=== PATIENT | male | born 1950 | race Caucasian/White ===

== ENCOUNTER 2023-04-10 10:46 | Inpatient (IN) | payer MEDICARE, SELFPAY ==
[2023-04-10] VITALS (39 sets, daily range): BP systolic 79–136; BP diastolic 46–71; PULSE 44–160; RESP 17–35; TEMP 36.6–36.7; O2SAT 92–100; BMI 20.9; BMI 21.5; BMI 20.5
[2023-04-10] MEDS: dilTIAZem HCL 100 MG in 0.9 % SODIUM CHLORIDE 100 ML 10 MG IV (10:59)
[2023-04-10] MEDS: LACTATED RINGERS 1000ML 1,000 ML 999 ML IV (11:01)
--- NOTE | 2023-04-10 11:11 | XR_ITS ---
FINAL REPORT CLINICAL HISTORY: cp FINDINGS: SINGLE-VIEW CHEST There is cardiomegaly. The mediastinum is normal. There is right base opacity, may represent localized pneumonia but mass is not excluded. There is no pneumothorax. IMPRESSION: Right base opacity as above. Recommend follow-up radiographs or chest CT. Reviewed, Interpreted and Dictated by Arsenio Ramirez III, MD Transcribed by Tootie Rosas Authenticated and . [facility]
[2023-04-10 11:19] LABS: Basophils % 0.1 % (0.1-2.0); Eosinophils # 0.1 K/mm3 (0.0-0.4); Eosinophils % 0.4 % (0.1-12.0); Hematocrit 41.9 % (42.0-52.0); Hemoglobin 13.5 g/dL (14.1-18.0); Lymphocytes % 7.9 % (10-50); Mean Corpuscular HGB Conc 32.2 g/dL (31.8-35.4); Mean Corpuscular Hemoglobin 30.6 pg (27.0-31.2); Mean Corpuscular Volume 94.8 fl (80-94); Mean Platelet Volume 8.2 fl (7.4-10.4); Monocytes # 0.7 K/mm3 (0.1-1.0); Monocytes % 5.1 % (1.7-9.3); Neutrophils # 11.3 K/mm3 (1.8-7.8); Neutrophils % 86.6 % (37.0-80.0); Platelet Count 627 K/mm3 (142-424); Red Blood Count 4.42 M/mm3 (4.60-6.20); White Blood Count 13.1 K/mm3 (4.8-10.8)
[2023-04-10 11:21] LABS: Chloride 102 mmol/L (98-107); Potassium 3.9 mmoL/L (3.5-5.1); Sodium 135 mmol/L (136-145)
[2023-04-10 11:23] LABS: Blood Urea Nitrogen 18 mg/dl (9-20); Creatinine Clearance Estimated 48 mL/min (50-200); Estimated Glomerular Filt Rate 110 ml/min (>60); GFR (African American) 133 ML/MIN (>60)
[2023-04-10 11:24] LABS: Alanine Aminotransferase 48 U/L (12-78); Albumin Level 3.3 g/dl (3.5-5.0); Albumin/Globulin Ratio 0.9 (1.1-1.8); Alkaline Phosphatase 401 U/L (38-126); Anion Gap 13.9 mEq/L (5-15); Aspartate Amino Transferase 68 U/L (17-59); Bilirubin,Total 0.6 mg/dl (0.2-1.3); Carbon Dioxide 23 mmol/L (22.0-30.0); Globulin 3.5 g/dL (1.3-3.2); Total Protein,Serum 6.8 g/dl (6.3-8.2)
[2023-04-10 11:25] LABS: Calcium 8.7 mg/dl (8.4-10.2); Glucose 101 mg/dl (74-100)
[2023-04-10 11:26] LABS: MANUAL DIFFERENTIAL MANUAL DIFFERENTIAL (MANUAL DIFF)
--- NOTE | 2023-04-10 11:31 | ECG_ITS ---
APPROVED REPORT Exam: Resting ECG HR:158 bpm ECG Measurements Heart Rate 158 AXES QRSd 148 QRS 165 QT 300 T -34 QTc 388 Conclusion ATRIAL FLUTTER/TACHYCARDIA WITH RAPID VENTRICULAR RESPONSE RIGHT BUNDLE BRANCH BLOCK [120+ ms QRS DURATION, UPRIGHT V1, 40+ ms S IN I/aVL/V4/V5/V6] LEFT POSTERIOR FASCICULAR BLOCK [QRS AXIS > 109, INFERIOR Q] CRITICAL TEST RESULT UNCONFIRMED REPORT Electronically signed by : Dick Radford MD 04/11/2023 20:11:49
--- NOTE | 2023-04-10 11:34 | ED_ITS ---
Discharge Plan Disposition Patient Disposition: Admitted Chief Complaint: Arrhythmia/Palpitations Prescriptions Prescriptions: No Action digoxin 125 mcg (0.125 mg) tablet 0.125 mg PO DAILY Referrals Follow up/Referrals: Provider,Referral, MD [Referring] - See instructions Clinical Impressions Clinical Impression: Atrial flutter, Atrial tachycardia, CHF exacerbation, Lung cancer Discharge ED Provider: Norberto Voss General Adult HPI General Chief complaint: Arrhythmia/Palpitations Stated complaint: Chest Pain Time Seen by Provider: 04/10/23 10:56 Mode of Arrival: Wheelchair Source of Information: Patient Limitations: No Limitations Description of Symptoms (Recalled from ER Triage Doc. by RN): pt presents to ED with c/o tachycardia and a fib. pt report he was seen on saturday at [facility] ER and diagnosed with a fib. pt reports symptoms ongoing since then. History of Present Illness HPI narrative: 73-year-old male history of COPD not currently on home oxygen presenting with shortness of breath palpitations. This has been going on for couple of days. Was seen in outside ED, diagnosed with A-fib, and then sent home because, allegedly, he was unable to get admitted or transferred to the area. Patient has had palpitations at that time. Followed up with cardiology today where he was having heart rate 1 50-1 60 and appeared to be regular narrow complex. Patient was then sent to the ER for further evaluation. Patient states that he is feeling short of breath like he cannot catch his breath, but no cough, diaphoresis, nausea, vomiting, or any concerns. No lower extremity edema. Never had anything like this in the past. He states that he began having the palpitations right after he was prescribed albuterol for shortness of breath by PCP. Related Data Home Medications Medication Instructions Recorded Confirmed digoxin 125 mcg (0.125 mg) tablet 0.125 mg PO DAILY 04/10/23 04/10/23 Allergies Allergy/AdvReac Type Severity Reaction Status Date / Time No Known Allergies Allergy Verified 04/10/23 09:58 [facility] Disclaimer: The information contained in this section may have been updated after the patient was seen, as this information can be updated by other users. Surgical History (Updated 04/10/23 @ 09:58 by Sarah Jj) H/O hernia repair Social History (Updated 04/10/23 @ 09:57 by Sarah Jj) Smoking Status: Current every day smoker tobacco type: cigarettes packs per day: 1 alcohol intake: never current occupational status: retired Travel in the last 8 weeks: Inside the [place] ROS Obtained: Yes All systems reviewed & no additional complaints except as documented Physical Exam General General appearance: alert and in no apparent distress Head Head exam: atraumatic and normocephalic Eye Eye exam: Present normal appearance, PERRL and EOMI ENT ENT exam: Present mucous membranes moist Neck Neck exam: Present normal inspection, full ROM and trachea midline Chest Chest inspection: Present normal inspection and symmetric chest wall rise Respiratory Respiratory exam: Absent respiratory distress, wheezes, stridor, accessory muscle use or prolonged expiratory phase Cardiovascular Cardiovascular exam: Present normal rhythm and tachycardia Abdominal Exam Abdominal exam: Present soft; Absent distention, tenderness, guarding, rebound or rigidity Extremities Exam Extremities exam: Absent edema Neurological Exam Neurological exam: Present alert, oriented X3, CN II-XII intact and normal gait; Absent motor sensory deficit Skin Skin exam: Present warm and dry; Absent diaphoresis or erythema Medical Decision Making Medical Records Medical records reviewed: Yes I reviewed the patient's medical records. Junior Inquiry Pt receiving controlled substance: No Junior was queried for this patient: No Vital Signs: 04/10/23 10:47 04/10/23 10:56 04/10/23 11:00 Temperature 98.0 F Temperature Source Oral Pulse Rate 160 H 158 H Pulse Rate [Left Radial] 160 H Respiratory Rate 17 25 H 29 H Blood Pressure 93/69 L 95/70 L Blood Pressure [Right Arm] 92/71 L Blood Pressure Mean Blood Pressure Mean [Right Arm] 78 02 Sat by Pulse Oximetry 96 98 92 L Oxygen Delivery Method Room Air 04/10/23 11:15 04/10/23 11:17 04/10/23 11:32 Temperature Temperature Source Pulse Rate 159 H 158 H 158 H Pulse Rate [Left Radial] Respiratory Rate 24 31 H 32 H Blood Pressure 87/66 L 92/71 L 88/58 L Blood Pressure [Right Arm] Blood Pressure Mean Blood Pressure Mean [Right Arm] 02 Sat by Pulse Oximetry 97 95 98 Oxygen Delivery Method 04/10/23 11:42 04/10/23 11:46 04/10/23 11:57 Temperature Temperature Source Pulse Rate 62 Pulse Rate [Left Radial] Respiratory Rate 28 H 33 H 28 H Blood Pressure 89/67 L 93/54 L 81/54 L Blood Pressure [Right Arm] Blood Pressure Mean Blood Pressure Mean [Right Arm] 02 Sat by Pulse Oximetry 97 Oxygen Delivery Method 04/10/23 12:00 04/10/23 12:15 04/10/23 11:50 Temperature Temperature Source Pulse Rate 80 158 H 89 Pulse Rate [Left Radial] Respiratory Rate 24 30 H Blood Pressure 90/57 L 89/58 L Blood Pressure [Right Arm] Blood Pressure Mean Blood Pressure Mean [Right Arm] 02 Sat by Pulse Oximetry 99 97 Oxygen Delivery Method 04/10/23 11:50 04/10/23 12:22 04/10/23 12:30 Temperature Temperature Source Pulse Rate 156 H 82 67 Pulse Rate [Left Radial] Respiratory Rate 30 H 29 H Blood Pressure 89/63 L 91/53 L Blood Pressure [Right Arm] Blood Pressure Mean Blood Pressure Mean [Right Arm] 02 Sat by Pulse Oximetry 95 96 Oxygen Delivery Method 04/10/23 13:01 04/10/23 13:15 04/10/23 13:30 Temperature Temperature Source Pulse Rate 157 H 75 Pulse Rate [Left Radial] Respiratory Rate 29 H 24 27 H Blood Pressure 90/63 L 86/53 L 88/60 L Blood Pressure [Right Arm] Blood Pressure Mean Blood Pressure Mean [Right Arm] 02 Sat by Pulse Oximetry 97 96 97 Oxygen Delivery Method 04/10/23 13:45 04/10/23 14:00 04/10/23 14:15 Temperature Temperature Source Pulse Rate 60 56 L 56 L Pulse Rate [Left Radial] Respiratory Rate 33 H 35 H 27 H Blood Pressure 87/54 L 92/58 L 87/51 L Blood Pressure [Right Arm] Blood Pressure Mean 69 60 Blood Pressure Mean [Right Arm] 02 Sat by Pulse Oximetry 96 96 96 Oxygen Delivery Method 04/10/23 14:30 Temperature Temperature Source Pulse Rate 65 Pulse Rate [Left Radial] Respiratory Rate 27 H Blood Pressure 84/56 L Blood Pressure [Right Arm] Blood Pressure Mean 62 Blood Pressure Mean [Right Arm] 02 Sat by Pulse Oximetry 96 Oxygen Delivery Method Lab Data Lab Results 04/10/23 10:50: WBC 13.1 H, RBC 4.42 L, Hgb 13.5 L, Hct 41.9 L, MCV 94.8 H, MCH 30.6, MCHC 32.2, RDW 14.0, Plt Count 627 H, MPV 8.2, Neut % (Auto) 86.6 H, Lymph % (Auto) 7.9 L, Liberty % (Auto) 5.1, Eos % (Auto) 0.4, Baso % (Auto) 0.1, Neut # (Auto) 11.3 H, Lymph # (Auto) 1.0, Liberty # (Auto) 0.7, Eos # (Auto) 0.1, Baso # (Auto) 0.0, Total Counted 100, Neutrophils % (Manual) 78 H, Band Neutrophils % 5.0, Lymphocytes % (Manual) 3 L, Monocytes % (Manual) 14 H, Platelet Estimate Marked increase, RBC Morphology Normal, Sodium 135 L, Potassium 3.9, Chloride 102, Carbon Dioxide 23, Anion Gap 13.9, BUN 18, Creatinine 0.70, Estimated Creat Clear 48, Estimated GFR 110, Est GFR ( Amer) 133, Glucose 101 H, Calcium 8.7, Total Bilirubin 0.6, AST 68 H, ALT 48, Alkaline Phosphatase 401 H, Troponin I 0.04 H, NT-Pro-B Natriuret Pep 5980 H, Total Protein 6.8, Albumin 3.3 L, Globulin 3.5 H, Albumin/Globulin Ratio 0.9 L 04/10/23 10:50 04/10/23 10:50 Orders (Tests/Meds): ED MEDICATIONS Generic Name Dose Route Start Last Admin Trade Name Freq PRN Reason Stop Dose Admin Diltiazem HCl 180 mg 04/10/23 12:45 04/10/23 13:04 Diltiazem Hcl 180mg Cap.Er.24h PO 05/10/23 12:44 180 mg DAILY MANAS Administration Enoxaparin Sodium 55 mg 04/10/23 14:45 Enoxaparin 60mg/0.6ml Syringe SQ 05/10/23 14:44 Q12H MANAS Diltiazem HCl 100 mg/ Sodium 100 mls @ 10 mls/hr 04/10/23 10:58 04/10/23 12:30 Chloride IV 05/10/23 10:57 15 mg/hr .Q10H MANAS 15 mls/hr Titration Protocol 10 MG/HR Discontinued Medications Generic Name Dose Route Start Last Admin Trade Name Freq PRN Reason Stop Dose Admin Albuterol/Ipratropium 6 ml 04/10/23 11:33 04/10/23 12:03 Ipratropium/Albuterol 3 Ml Neb IH 04/10/23 11:34 6 ml ONCE ONE Administration Diltiazem HCl 15 mg 04/10/23 11:32 04/10/23 12:02 Diltiazem 25mg/5ml Vial IV 04/10/23 11:33 10 mg ONCE ONE Administration Diltiazem HCl 10 mg 04/10/23 12:30 04/10/23 12:27 Diltiazem 125mg/25ml Vial IV 04/10/23 12:31 10 mg ONCE ONE Administration Diltiazem HCl 10 mg 04/10/23 12:31 04/10/23 13:03 Diltiazem 25mg/5ml Vial IV 04/10/23 12:32 10 mg ONCE ONE Administration Furosemide 40 mg 04/10/23 14:32 Furosemide 40mg/4ml Vial IV 04/10/23 14:33 ONCE ONE Lactated Ringer's 1,000 mls @ 999 mls/hr 04/10/23 10:57 04/10/23 11:01 Lactated Ringer's 1000 Ml Bag IV 04/10/23 11:57 999 mls/hr .Q1H1M ONE Administration Magnesium Sulfate 2 gm in 50 mls @ 50 mls/hr 04/10/23 11:32 04/10/23 12:03 Magnesium Sulfate 2gm/50ml Premix IV 04/10/23 12:31 50 mls/hr ONCE ONE Administration Iopamidol 75 ml 04/10/23 12:54 04/10/23 12:55 Iopamidol-370 (76%);100ml Bottle IV 04/10/23 12:55 75 ml ONCE ONE Administration Methylprednisolone Sodium Succinate 125 mg 04/10/23 11:32 04/10/23 12:02 Methylprednisolone Sod Succ 125mg Vial IV 04/10/23 11:33 125 mg ONCE ONE Administration Sodium Chloride 50 ml 04/10/23 12:54 04/10/23 12:55 0.9 % Sodium Chloride 50 Ml Vial IV 04/10/23 12:55 50 ml ONCE ONE Administration Sodium Chloride 10 ml 04/10/23 12:54 04/10/23 12:55 Sodium Chloride 0.9% 10ml Syr (Rad Only) IV 04/10/23 12:55 10 ml ONCE ONE Administration ORDERS Category Date Time Status CT angio chest PE protocol Stat Cat Scan 04/10/23 12:16 Completed POCUS Point of Care (ER Only) Stat Exams 04/10/23 14:37 Ordered XR chest portable Stat Exams 04/10/23 11:11 Completed Brain Natriuretic Peptide Stat Lab 04/10/23 10:50 Completed Complete Blood Count Auto Diff Stat Lab 04/10/23 10:50 Completed Comprehensive Metabolic Panel Stat Lab 04/10/23 10:50 Completed Troponin I Q3H Lab 04/10/23 14:30 Received Troponin I Q3H Lab 04/10/23 17:15 Ordered Troponin I Stat Lab 04/10/23 10:50 Completed ECG initial Besson Routine Y 04/10/23 11:31 Completed ECG repeat same Besson Routine Y 04/10/23 13:06 Completed HEART Score History (anamnesis): Slightly suspicious ECG: Normal Age: >65 years Risk factors: 1-2 risk factors Troponin: 1-3x normal limit HEART Score: 4 Medical Decision Narrative: 73-year-old male history of COPD not currently on home oxygen presenting with shortness of breath palpitations. This has been going on for couple of days. Was seen in outside ED, diagnosed with A-fib, and then sent home because, allegedly, he was unable to get admitted or transferred to the area. Patient has had palpitations at that time. Followed up with cardiology today where he was having heart rate 1 50-1 60 and appeared to be regular narrow complex. Patient was then sent to the ER for further evaluation. Patient states that he is feeling short of breath like he cannot catch his breath, but no cough, diaphoresis, nausea, vomiting, or any concerns. No lower extremity edema. Never had anything like this in the past. He states that he began having the palpitations right after he was prescribed albuterol for shortness of breath by PCP. History was obtained via conversation with patient, family, cardiology. On arrival, patient hemodynamically stable, alert, oriented x4, appropriate, GCS 15, moving all extremities spontaneously, pupils equal and reactive to light. Full physical exam performed and significant for well-appearing male no acute distress. Lungs clear to auscultation bilaterally with quiet right lung base. No lower extremity edema. Patient tachycardic, but regular. Pulses equal and symmetric.. Differential includes ACS, NM, pneumothorax, PE, dissection, pneumothorax, aortic aneurysm, pneumonia, bronchitis, among others. Patient was given 10 mg diltiazem IV bolus, DuoNeb, prednisone, magnesium 2 g for symptomatic management and correction of underlying abnormalities. Workup independently interpreted and significant for Leukocytosis 13.1, nonactionable chemistry. Patient does have elevated troponin at 0.04 and BNP of 5900, likely secondary to heart strain versus COPD exacerbation. Chest x-ray with large right-sided lung mass, CT PE demonstrated no PE, but large lung mass with numerous metastases. Bedside ultrasound with grossly normal EF and wall motion. Small pericardial effusion. No evidence of right heart strain. See radiology read for full review of final results. Independent interpretation of EKG shows atrial tachycardia with right bundle branch block morphology. No evidence of epsilon wave. No evidence of delta wave. Different morphology P waves concerning for multifocal A. tach.. QRS 148 ms, QT 300 ms. Repeat EKG atrial flutter [address] or T wave changes concerning for acute ischemia. QRS wide with right bundle branch block morphology. Heart score 4. On reevaluation, patient remains intermittently tachycardic. Given numerous doses of diltiazem with intermittent return to slower heart rate. Diltiazem drip was started. Cardiology was contacted and case was discussed at length. Hospital medicine also contacted and case was discussed at length. Given patient presentation, workup, history, this most likely represents atrial flutter and rapid ventricular response. Also lung carcinoma. Because patient high risk for clinical decompensation, deemed appropriate for inpatient admission. Results were relayed to patient who voiced understanding and patient was agreeable to inpatient admission and management. Patient was admitted to the hospital for further definitive management. Procedures Limited Ultrasound Indication:: Limited cardiac ultrasound Indication: Palpitations Identified cardiac views: -Cardiac parasternal long axis -Cardiac parasternal short axis -Cardiac apical four-chamber Findings: -Cardiac activity grossly present -Gross wall motion normal, EF grossly normal -Pericardial effusion present -Right heart strain absent Impression: -Grossly healthy heart with no wall motion abnormalities. EF grossly normal. Patient does have small pericardial effusion Images were saved to permanent archive The study was technically adequate CPT: 30217 This study was performed by me, and I personally interpreted all images/videos. Based on my clinical judgement, these images were adequate and did not necessitate further imaging. Critical Care Critical Care Time Critical Care Time: Yes (cv) Attestation: On 04/10/23, the high probability of a clinically significant, sudden or life threatening deterioration of the following system(s) required my full and direct attention, intervention and personal management. The time I documented below is in addition to time spent performing reported procedures but includes the following listed in this critical care notation. Total Time Total Critical Care Time: 60
[2023-04-10 11:36] LABS: Troponin I 0.04 ng/ml (0.00-0.034)
[2023-04-10] MEDS: METHYLPREDNISOLONE SOD SUCC 125MG VIAL 125 MG IV (12:02)
[2023-04-10] MEDS: dilTIAZem 25MG/5ML VIAL 15 MG IV (12:02)
[2023-04-10] MEDS: MAGNESIUM SULFATE IN WATER 2 GM/50 ML PIGGYBACK IV (12:03)
[2023-04-10] MEDS: IPRATROPIUM/ALBUTEROL 3 ML NEB 6 ML IH (12:03)
--- NOTE | 2023-04-10 12:16 | CT_ITS ---
FINAL REPORT TECHNIQUE: Then section axial CT images of the chest were obtained with contrast. Three-D reformatted images were also obtained.This study was performed with techniques to keep radiation doses as low as reasonably achievable (ALARA). Individualized dose reduction techniques using automated exposure control or adjustment of mA and/or kV according to the patient's size were employed. CLINICAL HISTORY: tachycardia, soa, right lung mass COMPARISON: None FINDINGS: There is no evidence of pulmonary embolism. There is no evidence of thoracic aortic aneurysm or dissection. There is mediastinal and hilar adenopathy which is nonspecific, reactive or neoplastic. A small right pleural effusion is present as well as changes of emphysema. There are soft tissue opacities in the lung arce, most prominently in the right middle lobe and the superior segment of the right lower lobe. Some of this may represent inflammatory change, although a mass or masses are not excluded. There is a round 38 x 37 mm soft tissue opacity in the superior segment of the right lower lobe that could represent neoplasm; alternately the medial right middle lobe soft tissue opacity could be a mass. There are multiple hepatic masses, the largest of which is in the inferior right hepatic lobe and measures 6.7 cm in size. These likely represent widespread metastatic disease. There is also adenopathy in the upper abdomen, worrisome for metastatic disease. There are probable stones or sludge present in the gallbladder. IMPRESSION: No evidence of pulmonary embolism. Soft tissue opacities in the right middle lobe and the superior segment of the right lower lobe, while some may be an inflammatory a mass or masses cannot be excluded as described. Multiple hepatic masses, as well as upper abdominal adenopathy also worrisome for him widespread metastases. Reviewed, Interpreted and Dictated by Arsenio Ramirez III, MD Transcribed by Erin Thomas Authenticated and [facility]
[2023-04-10] MEDS: DILTIAZEM 125 MG/25 ML 10 MG IV (12:27)
--- NOTE | 2023-04-10 12:28 | PC.NURSE ---
after 2nd dose of diltiazem heart rate down to 86 cardiazem drip to 15mg
--- NOTE | 2023-04-10 12:37 | PC.NURSE ---
pt going up for CT
[2023-04-10] MEDS: SODIUM CHLORIDE 0.9% 10ML SYR (RAD ONLY) 10 ML IV (12:55)
[2023-04-10] MEDS: IOPAMIDOL-370 (76%);100ML BOTTLE 75 ML IV (12:55)
[2023-04-10] MEDS: 0.9 % SODIUM CHLORIDE 50 ML VIAL IV (12:55)
[2023-04-10 12:57] LABS: NT Pro Brain Natriuretic Pep. 5980 pg/mL (0-450)
[2023-04-10] MEDS: dilTIAZem 25MG/5ML VIAL 10 MG IV (13:03)
[2023-04-10] MEDS: dilTIAZem HCL 180MG CAP.ER.24H 180 MG PO (13:04)
--- NOTE | 2023-04-10 13:05 | PC.NURSE ---
PT BACK DOWN TO 94 AFTER 2RD DOSE OF DILTIAZEM 10MG IV EKG BEING DONE NOW
--- NOTE | 2023-04-10 13:06 | ECG_ITS ---
APPROVED REPORT Exam: Resting ECG HR:105 bpm ECG Measurements Heart Rate 105 AXES QRSd 165 QRS 131 QT 319 T 67 QTc 380 Conclusion ATRIAL FLUTTER/TACHYCARDIA WITH RAPID VENTRICULAR RESPONSE RIGHT BUNDLE BRANCH BLOCK [120+ ms QRS DURATION, UPRIGHT V1, 40+ ms S IN I/aVL/V4/V5/V6] LEFT POSTERIOR FASCICULAR BLOCK [QRS AXIS > 109, INFERIOR Q] ABNORMAL ECG UNCONFIRMED REPORT Electronically signed by : Dick Radford MD 04/11/2023 20:11:33
--- NOTE | 2023-04-10 14:29 | PC.NURSE ---
DR PLAZA SPEAKING WITH DR PATRICIA IN CARDIOLOGY
[2023-04-10 14:38] LABS: Lymphocytes % 3 % (10-50); Monocytes % 14 % (2-9); Neutrophils % 78 % (42-76); Total Cells Counted 100
[2023-04-10 14:43] LABS: Platelet Estimate Marked Increase; RBC Morphology Normal
[2023-04-10] MEDS: ENOXAPARIN 60MG/0.6ML SYRINGE 55 MG SQ (14:51)
[2023-04-10] MEDS: FUROSEMIDE 40MG/4ML VIAL 40 MG IV (14:51)
[2023-04-10 15:02] LABS: Troponin I 0.04 ng/ml (0.00-0.034)
--- NOTE | 2023-04-10 15:11 | PC.NURSE ---
called case management for admission for CHF exacerbation and aflutter
--- NOTE | 2023-04-10 17:22 | PC.NURSE ---
arrived by w/c from ED
[2023-04-10 17:52] LABS: Troponin I 0.04 ng/ml (0.00-0.034)
[2023-04-10] MEDS: dilTIAZem HCL 100 MG in 0.9 % SODIUM CHLORIDE 100 ML 15 MG IV ×2 (18:26→20:26)
--- NOTE | 2023-04-10 20:18 | P.HP_ITS ---
History of Present Illness *Admission Date: 04/10/23 *Reason for visit:: Shortness of breath *History of present illness: This is a very pleasant 73-year-old male with no significant past medical history who presents to the emergency department today with complaints of shortness of breath. He reports cough that started approximately 1 month ago with increased shortness of breath over the last several weeks. He reports being seen at [facility] ER for palpitations and was noted to be in A-fib. They attempted to admit him at that time but there was no bed availability. He reports shortness of breath with activity and at rest. He is reports midsternal chest pressure. States that he has had some increased fatigue. He does endorse a prior history of atrial fibrillation in his 20s and was on digoxin but was never referred to cards. He subsequently stopped the medication shortly after and has had no recurrence of A-fib since. He reports following with his PCP Dr. Chapman recently. He states he was given an albuterol inhaler with some symptomatic relief. He has recently undergone CT imaging for his abdomen that was notable for liver lesions for which they were attempting to set up outpatient follow-up for. Today in the emergency department he was noted to be in A-fib with RVR and requiring oxygen to maintain oxygen saturations. CT imaging here negative for PE but notable for soft tissue opacities in the right middle lobe and the superior segment of the right lower lobe that could represent inflammatory versus mass. Multiple hepatic lesions as well as well as upper abdominal adenopathy suspicious for widespread metastatic disease. Given the above-mentioned complaints, he will be admitted to the hospital service for further evaluation and management. [facility] Disclaimer: The information contained in this section may have been updated after the patient was seen, as this information can be updated by other users. Medical History COPD (chronic obstructive pulmonary disease) Distended bladder HLD (hyperlipidemia) PNA (pneumonia) Urinary retention Surgical History H/O hernia repair Hx of tonsillectomy Family History Other Atrial fibrillation Cancer Leukemia Stroke Social History Smoking Status: Current some day smoker tobacco type: cigarettes packs per day: 1 alcohol intake: never current occupational status: retired Travel in the last 8 weeks: None Review of Systems Constitutional Constitutional: Reports as per HPI Eyes Eyes: Reports as per HPI ENT Ears, Nose, Mouth, and Throat: Reports as per HPI *Cardiovascular Cardiovascular: Reports as per HPI *Respiratory Respiratory: Reports as per HPI *Gastrointestinal Gastrointestinal: Reports as per HPI *Genitourinary Genitourinary: Reports as per HPI *Musculoskeletal Musculoskeletal: Reports as per HPI Integumentary/Breasts Skin/Breast: Reports as per HPI *Neurologic Neurologic: Reports as per HPI Psychiatric Psychiatric: Reports as per HPI Endocrine Endocrine: Reports as per HPI Meds Home Medications and Allergies Home Medications Medication Instructions Recorded Confirmed Type ascorbic acid (vitamin C) 1,000 mg 1 mg PO DAILY 04/10/23 04/10/23 History tablet (Vitamin C) magnesium 1 tab PO DAILY 04/10/23 04/10/23 History pqbgbdjulgiw-lqkrjsit-ypushg 1 tab PO DAILY 04/10/23 04/10/23 History tablet (Multivitamin 50 Plus tablet) zinc 100 mg tablet 100 mg PO DAILY 04/10/23 04/10/23 History New Prescriptions to Start Prescriptions: Allergies Allergy/AdvReac Type Severity Reaction Status Date / Time No Known Allergies Allergy Verified 04/10/23 09:58 Exam Data for Last 24 hours Vital signs and Labs for Last 24 Hours: Temp Pulse Resp BP Pulse Ox O2 Del Method O2 Flow Rate 97.9 F 108 H 18 91/63 L 97 Nasal Cannula 2 04/10/23 17:50 04/10/23 18:45 04/10/23 18:45 04/10/23 18:45 04/10/23 18:45 04/10/23 18:45 04/10/23 18:45 Laboratory Results - last 24 hr 04/10/23 10:50: WBC 13.1 H, RBC 4.42 L, Hgb 13.5 L, Hct 41.9 L, MCV 94.8 H, MCH 30.6, MCHC 32.2, RDW 14.0, Plt Count 627 H, MPV 8.2, Neut % (Auto) 86.6 H, Lymph % (Auto) 7.9 L, Sully % (Auto) 5.1, Eos % (Auto) 0.4, Baso % (Auto) 0.1, Neut # (Auto) 11.3 H, Lymph # (Auto) 1.0, Sully # (Auto) 0.7, Eos # (Auto) 0.1, Baso # (Auto) 0.0, Total Counted 100, Neutrophils % (Manual) 78 H, Band Neutrophils % 5.0, Lymphocytes % (Manual) 3 L, Monocytes % (Manual) 14 H, Platelet Estimate Marked increase, RBC Morphology Normal, Sodium 135 L, Potassium 3.9, Chloride 102, Carbon Dioxide 23, Anion Gap 13.9, BUN 18, Creatinine 0.70, Estimated Creat Clear 48, Estimated GFR 110, Est GFR ( Amer) 133, Glucose 101 H, Calcium 8.7, Total Bilirubin 0.6, AST 68 H, ALT 48, Alkaline Phosphatase 401 H, Troponin I 0.04 H, NT-Pro-B Natriuret Pep 5980 H, Total Protein 6.8, Albumin 3.3 L, Globulin 3.5 H, Albumin/Globulin Ratio 0.9 L 04/10/23 14:30: Troponin I 0.04 H 04/10/23 17:09: Troponin I 0.04 H I & O for Last 24 hours: Intake & Output 04/07/23 04/08/23 04/09/23 04/10/23 23:59 23:59 23:59 23:59 Intake Total 95.167 / 95.167 Balance 95.167 / 95.167 Weight 50.802 kg Constitutional Constitutional: no acute distress *Routine HEENT Exam Head: Present normocephalic and atraumatic Eye: Present EOMI and PERRL ENT: Present mucous membranes moist *Routine Neck Exam Neck: Present supple and full ROM *Routine Respiratory Exam Respiratory: Present normal respiratory effort Comments: on oxygen *Routine Cardiovascular Exam Cardiovascular: Present RRR, Normal S1, Normal S2 and irregular rhythm *Routine Abdominal Exam Abdominal: Present soft and normoactive bowel sounds *Routine Rectal Exam Rectal:: deferred *Routine Genitalia Exam Genitalia:: deferred *Routine Extremities Exam Extremities: Present full ROM, pulses intact and normal capillary refill *Routine Skin Exam Skin: Present intact, dry and warm *Routine Neurological Exam Neurological: Present alert, oriented X3 and CN II-XII intact Assessment and Plan *Assessment and plan (1) Atrial flutter: Status: Acute Qualifiers: Atrial flutter type: typical Qualified Code(s): I48.3 - Typical atrial flutter Category: Medical Code(s): I48.92 - Unspecified atrial flutter (2) CHF exacerbation: Status: Acute Qualifiers: Heart failure type: unspecified Qualified Code(s): I50.9 - Heart failure, unspecified Category: Medical Code(s): I50.9 - Heart failure, unspecified (3) Lung mass: Status: Acute Category: Medical Code(s): R91.8 - Other nonspecific abnormal finding of lung field (4) Obstructive pneumonia: Status: Acute Category: Medical Code(s): J18.9 - Pneumonia, unspecified organism Plan This is a 73-year-old male with shortness of breath he was admitted for further evaluation of questionable lung mass, atrial flutter and CHF. Admit to stepdown Atrial flutter with RVR Reports remote history in his 20s of atrial fibrillation, stopped his medications years ago 2:1 conduction on EKG. Received diltiazem bolus and drip with improvement in rate. Current rate now in the 80s with atrial flutter Currently on therapeutic Lovenox for anticoagulation nurse monitoring Cardiology consult, appreciate recommendations CHF exacerbation unspecified No echo available, will order 1 for the a.m. BNP of 5000, symptomatic with shortness of breath requiring oxygen Continue IV Lasix twice daily Lung mass with postobstructive pneumonia Opacities of the right middle lobe and superior segment of the right lower lobe that may represent inflammatory versus mass Patient with productive cough, will initiate azithromycin and Rocephin Pulmonary consult in a.m. Continue Atrovent nebulizer 4 times daily Mucolytic's Sputum culture pending Procalcitonin pending Liver lesions Recent finding in March by PCP Will need follow up for likely metastatic disease. Now with lung nodules as well and abdominla lymphadenopathy LFTs stable Abdomen benign DVt PPx Therapuetic Lovenos FUll COde: Patient initially marked as DNR so confirmation completed but patient states that he was confused about what DNR meant. States that he acutely would want things to be done to try to save his life but does not want long-term feeding tube, PEG tube or or if outcome seems futile to not proceed with further workup. His sister is his POA. Rounded on patient before nurse practitioner. Personally examined and interviewed patient. Agree with exam findings and care plan as documented.
[2023-04-10] MEDS: AZITHROMYCIN 500 MG in 0.9 % SODIUM CHLORIDE 250 ML 250 MG IV (20:27)
[2023-04-10] MEDS: CEFTRIAXONE SODIUM 1 GM in 0.9 % SODIUM CHLORIDE 50 ML IV (20:27)
[2023-04-10] MEDS: MELATONIN 5MG TABLET 10 MG PO (21:26)
--- OUTSIDE RECORDS SUMMARY | 2023-04-10 21:32 | XMS_ITS | Continuity of Care Document ---
Author Name Unknown Address [address], [place] [id number] Organization [facility] Phone Care Team Providers Care Informatics Analyst Name Role Phone BRENNA NORIEGA Primary Attending BRENNA NORIEGA Primary Care BRENNA NORIEGA Admitting BRENNA NORIEGA Unavailable ALLERGIES AND ADVERSE REACTIONS ALLERGIES AND ADVERSE REACTIONS Code System Allergy Substance Adverse Reaction Date Reaction (Severity) Comment Status Reported By Updated By No Known Allergies [id number] on March 28, 2021 6:01:14 PM [facility] FAMILY HISTORY RELATION: Father Status: Cause of : Unknown Age at : Unknown SNOMED-CT Diagnosis Age At Onset Information not available RELATION: Mother Status: LIVING SNOMED-CT Diagnosis Age At Onset Information not available RESULTS Patient: KING MARZENA SARAH Date of : January [birth year] LABORATORY RESULTS Information is not available LABORATORY NARRATIVE RESULTS Information is not available RADIOLOGY RESULTS ORDER 100: CHEST PA AND LAT (LOINC: 49044-3) ORDER DATE: March 01, 2023 2:57:00 PM [facility] PATHOLOGY NARRATIVE RESULTS Information is not available MICROBIOLOGY RESULTS No Micro Labs/Results Exist for Patient BLOOD ADMIN RESULTS Information is not available MEDICATIONS HOME MEDICATIONS Status RXNORM Medication Dose Route Frequency Dates Comments R eported By Updated By Drug Treatment Unknown DISCHARGE MEDICATIONS Status RXNORM Medication Dose Route Frequency Dates Comments Physic kiran Updated By No Discharge Medication Info rmation Available INPATIENT MEDICATIONS Status RXNORM Medication Dose Route Frequency Rate Quantity Dates Comments Physician Updated By No Inpatient Medication Info rmation Available SOCIAL HISTORY SOCIAL HISTORY SNOMED-CT Social History Element Description Effective Dates Offered Cessation Comment UpdatedBy [id number] Historical Tobacco smoking status Current Every Day Smoker Yes [id number] on August 20, 2018 6:11:54 PM [facility] SOCIAL HISTORY - Gender Sex: Male SOCIAL HISTORY - Sexual Behavior Sexual Orientation Gender Identity SNOMED-CT Description SNO MED -CT Description Activity Level No of Partners Partner Type UpdatedBy HEALTH CONCERNS Problems Concern Status Health Concern problem infor mation not available. Smoking Status Status Years Used Consumed packs p er day Health Concern smoking histo ry information not available. Family History Concern Status Health Concern family histor y information not available. ENCOUNTERS ENCOUNTER INFORMATION Reason for Visit CXR Admission March 01, 2023 2:41:[address] [address] Discharge March 01, 2023 2:41:00 PM [facility] DISCHARGED TO HOME OR SELF CARE ENCOUNTER DIAGNOSES Notes information is not jie ilable. Code System Diagnosis Onset Date Diagnosis information is not available. ABSTRACT DIAGNOSES Code System Diagnosis Updated By R05.9 ICD10 COUGH, UNSPECIFIED [id number] o n March 04, 2023 1:24:18 PM [facility] R05.9 ICD10 COUGH, UNSPECIFIED [id number] o n March 04, 2023 1:24:18 PM [facility] R06.02 ICD10 SHORTNESS OF BREATH [id number] on March 04, 2023 1:24:18 PM [facility] R91.8 ICD10 OTHER NONSPECIFI C ABNORMAL FINDING OF LUNG FIELD [id number] on March 04, 2023 1:24:18 PM [facility] CARE TEAM Care Informatics Analyst Role BRENNA NORIEGA Primary Attending BRENNA NORIEGA Primary Care BRENNA NORIEGA Admitting BRENNA NORIEGA Referring CARE TEAM CARE 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 Role on Team Status Start Date End Date Update d By HARI CAST Referring normal March 01, 2023 5:00:00 AM [facility] March 01, 2023 5:00:00 AM [facility] [id number] on March 01, 2023 2:44:40 PM [facility] HARI CAST Attending normal March 01, 2023 5:00:00 AM [facility] March 01, 2023 5:00:00 AM [place] [id number] on March 01, 2023 2:44:40 PM [facility] HARI CAST Admitting normal March 01, 2023 5:00:00 AM [facility] March 01, 2023 5:00:00 AM [facility] [id number] on March 01, 2023 2:44:40 PM [facility] HARI CAST PCP normal March 01, 2023 5:00:00 AM [facility] March 01, 2023 5:00:00 AM [facility] [id number] on March 01, 2023 2:44:40 PM [facility]
--- OUTSIDE RECORDS SUMMARY | 2023-04-10 21:32 | XMS_ITS | Continuity of Care Document ---
Author Name Unknown Address [address] [place] [id number] Organization [facility] Phone Care Team Providers Care Primary Care Nurse Name Role Phone BRENNA NORIEGA Admitting BRENNA NORIEGA Unavailable BRENNA NORIEGA Primary Attending BRENNA NORIEGA Primary Care ALLERGIES AND ADVERSE REACTIONS ALLERGIES AND ADVERSE REACTIONS Code System Allergy Substance Adverse Reaction Date Reaction (Severity) Comment Status Reported By Updated By No Known Allergies [id number] on March 28, 2021 6:01:14 PM [facility] FAMILY HISTORY RELATION: Father Status: Cause of : Unknown Age at : Unknown SNOMED-CT Diagnosis Age At Onset Information not available RELATION: Mother Status: LIVING SNOMED-CT Diagnosis Age At Onset Information not available RESULTS Patient: KING MARZENA SARAH Date of : January 06 LABORATORY RESULTS ORDER 200: BUN (LOINC: 3094- 0) ORDER DATE: March 07, 2023 12:14:00 PM [place] Specimen Source: Serum/Plasm a PERFORMING LAB: [address] [id number] Result Comment: Final Result Date: March 07, 2023 12:52:00 PM [facility] (TECH: MRB) LOINC TEST FLAG RESULT REFERENCE RANGE UPDA JOSEFINA BY 3094-0 Urea nitrogen [Mass/volume] in Serum or Plasma N 17 mg/dL 7 mg/dL - 18 mg/dL March 07 12:52:00 PM [facility] (TECH: MRB) ORDER 300: CREATININE (LOINC : 2160-0) ORDER DATE: March 07, 2023 12:14:00 PM [place] Specimen Source: Serum/Plasm a PERFORMING LAB: [address] [id number] Result Comment: Final Result Date: March 07, 2023 12:53:00 PM [facility] (TECH: MRB) [facility] TEST FLAG RESULT REFERENCE RANGE UPDA JOSEFINA BY 2160-0 Creatinine [Mass/volume] in Serum or Plasma N 0.9 mg/dL 0.8 mg/dL - 1.3 mg/dL March 12:53:00 PM [facility] (TECH: MRB) 66679-1 Glomerular filtratio n rate/1.73 sq M.predicted by Creatinine-based formula (MDRD) N 87 mL/min >60 March 07, 2023 12:53:00 PM [facility] (TECH: MRB) LABORATORY NARRATIVE RESULTS Information is not available RADIOLOGY RESULTS ORDER 400: CT CHEST WITH CON TRAST ([facility]: 01448-8) ORDER DATE: March 07, 2023 12:21:00 PM [facility] PATHOLOGY NARRATIVE RESULTS Information is not available MICROBIOLOGY RESULTS No Micro Labs/Results Exist for Patient BLOOD ADMIN RESULTS Information is not available TREATMENT PLAN DISCHARGE MEDICATIONS Status RXNORM Medication Dose Route Frequency Dates Comments U pdated By Patient discharge medication information is not available. PATIENT OPEN ORDERS Code System Description Frequency Occurrences Priority [place] [id number] [facility] Collection method - Specimen ONE TIME 0 Routine March 07, 2023 12:14:00 PM [facility] HARI CEJA MD [id number] on March 07, 2023 12:14:00 PM [facility] SCHEDULED PROCEDURES Code System Description Status Scheduled Date Upd ated By Patient scheduled procedure information is not available. MEDICATIONS HOME MEDICATIONS Status RXNORM Medication Dose [...] Description Effective Dates Offered Cessation Comment UpdatedBy [id number] Historical Tobacco smoking status Current Every Day Smoker Yes [id number] on August 20, 2018 6:11:54 PM [facility] SOCIAL HISTORY - Gender Sex: Male SOCIAL [...] available. ENCOUNTERS ENCOUNTER INFORMATION Reason for Visit Not Specified Admission March 07, 2023 11:59:[address] [address] Discharge March 07, 2023 4:59:00 PM [facility] DISCHARGED TO HOME OR SELF CARE ENCOUNTER DIAGNOSES Notes information is not jie ilable. Code System Diagnosis Onset Date Diagnosis information is not available. ABSTRACT DIAGNOSES Code System Diagnosis Updated By R91.8 ICD10 OTHER NONSPECIFI C ABNORMAL FINDING OF LUNG FIELD [id number] on March 08, 2023 12:28:19 PM [place] R91.8 ICD10 OTHER NONSPECIFI C ABNORMAL FINDING OF LUNG FIELD [id number] on March 08, 2023 12:28:19 PM [place] I10 ICD10 ESSENTIAL (PRIMARY) HYPERTEN SHER [id number] on March 08, 2023 12:28:19 PM [place] R59.0 ICD10 LOCALIZED ENLARGED LYMPH NOD ES [id number] on March 08, 2023 12:28:19 PM [place] K76.9 ICD10 LIVER DISEASE, UNSPECIFIED P [id number] on March 08, 2023 12:28:19 PM [facility] CARE TEAM Care Primary Care Nurse Role BRENNA NORIEGA Admitting BRENNA NORIEGA Referring BRENNA NORIEGA Primary Attending BRENNA NORIEGA Primary Care CARE TEAM CARE coppersmith helper Role on Team Status Start Date End Date Update d By HARI CAST PCP normal March 05, 2023 4:53:33 PM [place] March 07, 2023 5:00:00 AM [place] [id number] on March 05, 2023 4:53:33 PM [facility] HARI CAST Referring normal March 05, 2023 4:53:33 PM [place] March 07, 2023 5:00:00 AM [place] [id number] on March 05, 2023 4:53:33 PM [facility] HARI CAST Attending normal March 05, 2023 4:53:33 PM [place] March 07, 2023 5:00:00 AM [place] [id number] on March 05, 2023 4:53:33 PM [facility] HARI CAST Admitting normal March 05, 2023 4:53:33 PM [facility] March 07, 2023 5:00:00 AM [facility] [id number] on March 05, 2023 4:53:33 PM [facility]
--- OUTSIDE RECORDS SUMMARY | 2023-04-10 21:32 | XMS_ITS | Continuity of Care Document ---
Author Name Unknown Address [address] [place], [place] [id number] Organization [facility] Phone Care Team Providers Care Centrifugal Wax Molder Name Role Phone BRENNA NORIEGA Unavailable BRENNA NORIEGA Primary Attending BRENNA NORIEGA Admitting BRENNA NORIEGA Primary Care ALLERGIES AND ADVERSE REACTIONS ALLERGIES AND ADVERSE REACTIONS Code System Allergy Substance Adverse Reaction Date Reaction (Severity) Comment Status Reported By Updated By No Known Allergies [id number] on March 28, 2021 6:01:14 PM [facility] FAMILY HISTORY RELATION: Father Status: Cause of : Unknown Age at : Unknown SNOMED-CT Diagnosis Age At Onset Information not available RELATION: Mother Status: LIVING SNOMED-CT Diagnosis Age At Onset Information not available RESULTS Patient: KING MARZENA SARAH Date of : January 06 LABORATORY RESULTS Information is not available LABORATORY NARRATIVE RESULTS Information is not available RADIOLOGY RESULTS ORDER 100: CT ABD/PELVIS WIT H IV CONTRAST (LOINC: 20661-7) ORDER DATE: March 14, 2023 12:46:00 PM [facility] PATHOLOGY NARRATIVE RESULTS Information is not [...] Description Effective Dates Offered Cessation Comment UpdatedBy [id number] Historical Tobacco smoking status Current Every Day Smoker Yes [id number] on August 20, 2018 6:11:54 PM [facility] SOCIAL HISTORY - Gender Sex: Male [...] Reason for Visit Not Specified Admission March 14, 2023 12:33:00 PM [place] [facility] [address] [address] Discharge March 14, 2023 5:33:00 PM UTC DISCHARGED TO HOME OR SELF CARE ENCOUNTER DIAGNOSES Notes information is not jie ilable. Code System Diagnosis Onset Date Diagnosis information is not available. ABSTRACT DIAGNOSES Code System Diagnosis Updated By K76.9 ICD10 LIVER DISEASE, UNSPECIFIED F [id number] on March 12, 2023 7:38:35 PM [facility] CARE TEAM Care Centrifugal Wax Molder Role BRENNA NORIEGA Referring BRENNA NORIEGA Primary Attending BRENNA NORIEGA Admitting BRENNA NORIEGA Primary Care CARE TEAM CARE title i teacher Role on Team Status Start Date End Date Update d By HARI CAST PCP normal March 12, 2023 7:38:36 PM UTC March 14, 2023 5:33:00 PM UTC [id number] on March 12, 2023 7:38:36 PM UTC HARI CAST Referring normal March 12, 2023 7:38:36 PM UTC March 14, 2023 5:33:00 PM UTC [id number] on March 12, 2023 7:38:36 PM [place] HARI CAST Attending normal March 12, 2023 7:38:36 PM UTC March 14, 2023 5:33:00 PM UTC [id number] on March 12, 2023 7:38:36 PM [place] HARI CAST Admitting normal March 12, 2023 7:38:36 PM UTC March 14, 2023 5:33:00 PM UTC [id number] on March 12, 2023 7:38:36 PM UTC
--- OUTSIDE RECORDS SUMMARY | 2023-04-10 21:32 | XMS_ITS | Continuity of Care Document ---
Author Name Unknown Address [address] [place], [place] [id number] Organization [facility] Phone Care Team Providers Care Substation Technician Name Role Phone BRENNA NORIEGA Unavailable BRENNA NORIEGA Primary Attending BRENNA NORIEGA Admitting BRENNA NORIEGA Primary Care ALLERGIES AND ADVERSE REACTIONS ALLERGIES AND ADVERSE REACTIONS Code System Allergy Substance Adverse Reaction Date Reaction (Severity) Comment Status Reported By Updated By No Known Allergies [id number] on March 28, 2021 6:01:14 PM [facility] FAMILY HISTORY RELATION: Father Status: Cause [...] CT ABD/PELVIS WIT H IV CONTRAST (LOINC: 55515-2) ORDER DATE: March 14, 2023 12:46:00 PM [facility] PATHOLOGY NARRATIVE RESULTS Information is not [...] Description Effective Dates Offered Cessation Comment UpdatedBy [id number] Historical Tobacco smoking status Current Every Day Smoker Yes [id number] on August 20, 2018 6:11:54 PM [facility] SOCIAL HISTORY - Gender Sex: Male [...] Admission March 14, 2023 12:33:[address] [place] [address] [address] Discharge March 14, 2023 5:33:00 PM [facility] DISCHARGED TO HOME OR SELF CARE ENCOUNTER DIAGNOSES Notes information is not jie ilable. Code System Diagnosis Onset Date Diagnosis information is not available. 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 Role on Team Status Start Date End Date Update d By HARI CAST PCP normal March 12, 2023 7:38:36 PM [facility] March 14, 2023 5:00:00 AM [facility] [id number] on March 12, 2023 7:38:36 PM [facility] HARI CAST Referring normal March 12, 2023 7:38:36 PM [place] March 14, 2023 5:00:00 AM [facility] [id number] on March 12, 2023 7:38:36 PM [facility] HARI CAST Attending normal March 12, 2023 7:38:36 PM [place] March 14, 2023 5:00:00 AM [place] [id number] on March 12, 2023 7:38:36 PM [facility] HARI CAST Admitting normal March 12, 2023 7:38:36 PM [facility] March 14, 2023 5:00:00 AM [facility] [id number] on March 12, 2023 7:38:36 PM [facility]
--- OUTSIDE RECORDS SUMMARY | 2023-04-10 21:32 | XMS_ITS | Continuity of Care Document ---
Author Name Unknown Address [address] [place] [phone] Organization [facility] Phone Care Team Providers Care Java Web Services Developer Name Role Phone BRENNA NORIEGA Admitting BRENNA NORIEGA Unavailable BRENNA NORIEGA Primary Attending BRENNA NORIEGA Primary Care ALLERGIES AND ADVERSE REACTIONS ALLERGIES AND ADVERSE REACTIONS Code System Allergy Substance Adverse Reaction Date Reaction (Severity) Comment Status Reported By Updated By No Known Allergies [id number] on March 28, 2021 6:01:14 PM [facility] FAMILY HISTORY RELATION: Father Status: [...] UT Specimen Source: Serum/Plasm a PERFORMING LAB: [address] [id number] Result Comment: Final Result Date: March 07, [...] [place] Specimen Source: Serum/Plasm a PERFORMING LAB: [address] [id number] Result Comment: Final Result Date: March 07, 2023 12:53:00 PM [facility] (TECH: MRB) [facility] TEST FLAG RESULT REFERENCE RANGE UPDA JOSEFINA BY 2160-0 Creatinine [Mass/volume] in Serum or Plasma N 0.9 mg/dL 0.8 mg/dL - 1.3 mg/dL March 12:53:00 PM [facility] (TECH: MRB) 71675-2 Glomerular filtratio n rate/1.73 sq M.predicted by Creatinine-based formula (MDRD) N 87 mL/min >60 March 07, 2023 12:53:00 PM [facility] (TECH: MRB) LABORATORY NARRATIVE RESULTS Information is not available RADIOLOGY RESULTS ORDER 400: CT CHEST WITH CON TRAST ([facility]: 23761-6) ORDER DATE: March 07, 2023 12:21:00 PM [facility] PATHOLOGY NARRATIVE RESULTS Information is not available MICROBIOLOGY RESULTS No Micro Labs/Results Exist for Patient BLOOD ADMIN RESULTS Information is not available TREATMENT PLAN DISCHARGE MEDICATIONS Status RXNORM Medication Dose Route Frequency Dates Comments U pdated By Patient discharge medication information is not available. PATIENT OPEN ORDERS Code System Description Frequency Occurrences Priority [place] [address] [facility] Collection method - Specimen ONE TIME 0 Routine March 07, 2023 12:14:00 PM [facility] HARI CEJA MD [id number] on March 07, 2023 12:14:00 PM [facility] SCHEDULED PROCEDURES Code System Description Status [...] Description Effective Dates Offered Cessation Comment UpdatedBy [id number] Historical Tobacco smoking status Current Every Day Smoker Yes [id number] on August 20, 2018 6:11:54 PM [facility] SOCIAL HISTORY - Gender Sex: [...] Specified Admission March 07, 2023 11:59:[address] [address] Discharge March 07, 2023 4:59:00 PM [facility] DISCHARGED TO HOME OR SELF CARE ENCOUNTER DIAGNOSES Notes information is not jie ilable. Code System Diagnosis Onset Date Diagnosis information is not available. 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
--- OUTSIDE RECORDS SUMMARY | 2023-04-10 21:32 | XMS_ITS | Continuity of Care Document ---
Author Name Unknown Address [address], [place] [id number] Organization [facility] Phone Care Team Providers Care Wind Energy Systems Installer Name Role Phone BRENNA NORIEGA Primary Attending BRENNA NORIEGA Primary Care BRENNA NORIEGA Admitting BRENAN NORIEGA Unavailable ALLERGIES AND ADVERSE REACTIONS ALLERGIES AND ADVERSE REACTIONS Code System Allergy Substance Adverse Reaction Date Reaction (Severity) Comment Status Reported By Updated By No Known Allergies [email or web address] on March 28, 2021 6:01:14 PM [facility] FAMILY HISTORY RELATION: Father Status: Cause of : Unknown Age at : Unknown SNOMED-CT Diagnosis Age At Onset Information not available RELATION: Mother Status: LIVING SNOMED-CT Diagnosis Age At Onset Information not available TREATMENT PLAN DISCHARGE MEDICATIONS Status RXNORM Medication Dose Route Frequency Dates Comments U pdated By Patient discharge medication information is not available. PATIENT OPEN ORDERS Code System Description Frequency Occurrences Priority [place] [address] [facility] Chest X-ray PA and lateral ONE TIME 0 Routine March 01, 2023 2:57:00 PM [facility] HARI CEJA MD [id number] on March 01, 2023 2:57:00 PM [facility] SCHEDULED PROCEDURES Code System Description Status Scheduled [...] Description Effective Dates Offered Cessation Comment UpdatedBy [id number] Historical Tobacco smoking status Current Every Day Smoker Yes [id number] on August 20, 2018 6:11:54 PM [facility] SOCIAL HISTORY - Gender Sex: Male SOCIAL [...] CXR Admission March 01, 2023 2:41:[address] [address] Discharge March 01, 2023 2:41:00 PM [facility] DISCHARGED TO HOME OR SELF CARE ENCOUNTER DIAGNOSES Notes information is not jie ilable. Code System Diagnosis Onset Date Diagnosis information is not available. ABSTRACT DIAGNOSES Code System Diagnosis Updated By Abstract Diagnosis informati on is not available. 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 Role on Team Status Start Date End Date Update d By HARI CAST Referring normal March 01, 2023 5:00:00 AM [facility] March 01, 2023 2:41:00 PM [facility] [id number] on March 01, 2023 2:44:40 PM [facility] HARI CAST Attending normal March 01, 2023 5:00:00 AM [facility] March 01, 2023 2:41:00 PM [facility] [id number] on March 01, 2023 2:44:40 PM [facility] HARI CAST Admitting normal March 01, 2023 5:00:00 AM [facility] March 01, 2023 2:41:00 PM [place] [id number] on March 01, 2023 2:44:40 PM [facility] HARI CAST PCP normal March 01, 2023 5:00:00 AM [facility] March 01, 2023 2:41:00 PM [place] [id number] on March 01, 2023 2:44:40 PM [facility]
--- OUTSIDE RECORDS SUMMARY | 2023-04-10 21:32 | XMS_ITS | Continuity of Care Document ---
Author Name Unknown Address [address] [place] [phone] Organization [facility] Phone Care Team Providers Care Bobbin Stripper Name Role Phone BRENNA NORIEGA Primary Care ALLERGIES AND ADVERSE REACTIONS ALLERGIES AND ADVERSE REACTIONS Code System Allergy Substance Adverse Reaction Date Reaction (Severity) Comment Status Reported By Updated By No Known Allergies [id number] on April 08, 2023 3:16:18 PM UTC FAMILY HISTORY RELATION: Father Status: Cause of : Unknown Age at : Unknown SNOMED-CT Diagnosis Age At Onset Information not available RELATION: Mother Status: LIVING SNOMED-CT Diagnosis Age At Onset Information not available RESULTS Patient: KING MARZENA SARAH Date of : [birth year] LABORATORY RESULTS ORDER 200: CBC AUTO W DIFF ( LOINC: 75507-7) ORDER DATE: April 08, 2023 3:30:00 PM UTC Specimen Source: Whole Blood PERFORMING LAB: [address] [id number] Result Comment: Final Result Date: April 08, 2023 3:35:00 PM UTC (TECH: LT) LOINC TEST FLAG RESULT REFERENCE RANGE UPDA JOSEFINA BY 6690-2 Leukocytes [#/volume] in Blood by Automated count H 12.2 10^3/uL 4.5 10^3/uL - 11.5 10^3/uL April 08, 2023 3:35:00 PM UTC (TECH: LT) 789-8 Erythrocytes [#/volume] in Blood by Automated count L 4.22 10^6/uL 4.25 10^6/uL - 5.57 10^6/uL April 08, 2023 3:35:00 PM UTC (TECH: LT) 718-7 Hemoglobin [Mass/volume] in Blood L 12.7 g/dL 13.5 g/dL - 17.2 g/dL April 08, 2023 3:35:00 PM UTC (TECH: LT) 53243-4 Hematocrit [Volume Fraction] of Blood L 38.0 % 42.0 % - 52.0 % April 08, 2023 3:35:00 PM UTC (TECH: LT) 787-2 Erythrocyte mean corpuscular volume [Entitic volume] by Automated count N 90.0 fl 80 fl - 95 fl April 08, 2023 3:35:00 PM UTC (TECH: LT) 79703-0 Erythrocyte mean corpuscular hemoglobin [Entitic mass] in Blood from Fetus by Automated count N 30.1 pg 27.0 pg - 34.0 pg April 08, 2023 3:35:00 PM UTC (TECH: LT) 28899-2 Erythrocyte mean corpuscular hemoglobin concentration [Mass/volume] in Blood from Fetus by Automated count N 33.4 g/dL 32.0 g/dL - 36.0 g/dL April 08, 2023 3:35:00 PM UTC (TECH: LT) 63997-4 Platelets [#/volume] in Blood H 467 10^3/uL 150 10^3/uL - 450 10^3/uL April 08, 2023 3:35:00 PM UTC (TECH: LT) 74486-5 Erythrocyte distribution width [Ratio] N 14.1 % 12.3 % - 15.1 % April 08, 2023 3:35:00 PM UTC (TECH: LT) 36030-4 Platelet mean volume [Entitic volume] in Blood by Automated count N 8.4 fl 7.4 fl - 10.4 fl April 08, 2023 3:35:00 PM UTC (TECH: LT) 17379-0 Granulocytes/100 leukocytes in Blood by Automated count H 84.6 % 40 % - 75 % April 08, 2023 3:35:00 PM UTC (TECH: LT) 736-9 Lymphocytes/100 leukocytes in Blood by Automated count L 7.1 % 15 % - 57 % April 08, 2023 3:35:00 PM UTC (TECH: LT) 5905-5 Monocytes/100 leukocytes in Blood by Automated count N 8.0 % 4.0 % - 12.0 % April 08, 2023 3:35:00 PM UTC (TECH: LT) 713-8 Eosinophils/100 leukocytes in Blood by Automated count N 0.0 % 0.0 % - 4.0 % April 08, 2023 3:35:00 PM UTC (TECH: LT) 706-2 Basophils/100 leukocytes in Blood by Automated count N 0.1 % 0.0 % - 1.0 % April 08, 2023 3:35:00 PM UTC (TECH: LT) 72639-3 Immature granulocytes [#/volume] in Blood N 0.2 % 0.0 % - 0.8 % April 08, 2023 3:35:00 PM UTC (TECH: LT) 70106-4 Granulocytes [#/volume] in Blood by Automated count N 10.31 10^3/uL April 08, 2023 3:35:00 PM UTC (TECH: LT) 731-0 Lymphocytes [#/volume] in Blood by Automated count N 0.86 10^3/uL April 08, 2023 3:35:00 PM UTC (TECH: LT) 742-7 Monocytes [#/volume] in Blood by Automated count N 0.97 10^3/uL April 08, 2023 3:35:00 PM UTC (TECH: LT) 711-2 Eosinophils [#/volume] in Blood by Automated count N 0.00 10^3/uL April 08, 2023 3:35:00 PM UTC (TECH: LT) 704-7 Basophils [#/volume] in Blood by Automated count N 0.01 10^3/uL April 08, 2023 3:35:00 PM UTC (TECH: LT) 51506-9 Immature granulocytes [#/volume] in Blood N 0.03 10^3/uL April 08, 2023 3:35:00 PM UTC (TECH: LT) 50220-0 Manual differential performed [Presence] in Blood N NO April 08, 2023 3:35:00 PM UTC (TECH: LT) ORDER 700: PT PROTHROMBIN TI ME W INR (LOINC: 25862-2) ORDER DATE: April 08, 2023 3:30:00 PM UTC Specimen Source: Plasma PERFORMING LAB: [address] [id number] Result Comment: Final Result Date: April 08, 2023 3:46:00 PM UTC (TECH: LT) LOINC TEST FLAG [place] [address]-8 INR in Platelet poor plasma or blood by Coagulation assay N 11.0 seconds 9.1 seconds - 12.0 seconds April 08, 2023 3:46:00 PM UT (TECH: LT) 6301-6 INR in Platelet poor plasma by Coagulation assay N 1.00 0.9 - 1.1 April 08, 2023 3:46:00 PM UT (TECH: LT) ORDER 800: PTT PARTIAL THROM B TIME (LOINC: 07048-2) ORDER DATE: April 08, 2023 3:30:00 PM [place] Specimen Source: Plasma PERFORMING LAB: [address] [id number] Result Comment: Final Result Date: April 08, 2023 3:46:00 PM [facility] (TECH: LT) [facility] TEST FLAG [place] [address]-9 Activated partial thromboplastin time (aPTT) in Platelet poor plasma by Coagulation assay N 31.1 seconds 24.5 seconds - 32.8 seconds April 08, 2023 3:46:00 PM UT (TECH: LT) LABORATORY NARRATIVE RESULTS Information is not available RADIOLOGY RESULTS Information is not available PATHOLOGY NARRATIVE RESULTS Information is not available MICROBIOLOGY RESULTS No Micro Labs/Results Exist for Patient BLOOD ADMIN RESULTS Information is not available TREATMENT PLAN DISCHARGE MEDICATIONS Status RXNORM Medication Dose Route Frequency Dates Comments U pdated By Patient discharge medication information is not available. PATIENT OPEN ORDERS Code System Description Frequency Occurrences Priority [place] [address]-0 [facility] EKG study ONE TIME 0 Stat April 08, 2023 3:08:00 PM [facility] JACKIE Holder MD [id number] on April 08, 2023 3:08:00 PM [facility] 15301-4 [facility] Comprehensive metabolic 2000 panel - Serum or P ONE TIME 0 Stat April 08, 2023 3:30:00 PM [facility] JACKIE Holder MD [id number] on April 08, 2023 3:30:00 PM [facility] 88300-3 [facility] Troponin I.cardiac [Mass/volume] in Serum or Pl ONE TIME 0 Stat April 08, 2023 3:30:00 PM [facility] JACKIE Holder MD [id number] on April 08, 2023 3:30:00 PM [facility] 23050-2 LOINC Lactate [Mass/volume] in Serum or Plasma ONE TIME 0 Stat April 08, 2023 3:30:00 PM [facility] JACKIE Holder MD [id number] on April 08, 2023 3:30:00 PM [facility] SCHEDULED PROCEDURES Code System Description Status Scheduled Date Upd ated By Patient scheduled procedure information is not available. MEDICATIONS HOME MEDICATIONS Status RXNORM Medication Dose Route Frequency Dates Comments R eported By Updated By Active [id number] Proair Digihaler 90 mcg/actuatio n Aerosol Powder, Breath Activ.with Sensor 2.0 PUF INHALED PRN Last Dose: [id number] on April 08, 2023 3:16:21 PM [facility] Active 789019 promethazine -codeine 6.25-10 mg/5 mL syrup 0.0 PO PRN Last Dose: [id number] on April 08, 2023 3:16:21 PM [facility] DISCHARGE MEDICATIONS Status RXNORM Medication Dose Route Frequency Dates Comments Physic kiran Updated By No Discharge Medication Info rmation Available INPATIENT MEDICATIONS Status RXNORM Medication Dose Route Frequency Rate Quantity Dates Comments Physician Updated By No Inpatient Medication Info rmation Available SOCIAL HISTORY SOCIAL HISTORY SNOMED-CT Social History Element Description Effective Dates Offered Cessation Comment UpdatedBy [id number] Historical Tobacco smoking status Current Every Day Smoker Yes [id number] on August 20, 2018 6:11:54 PM [facility] SOCIAL HISTORY - Gender Sex: Male SOCIAL HISTORY - Sexual Behavior Sexual Orientation Gender Identity SNOMED-CT Description SNO MED -CT Description Activity Level No of Partners Partner Type UpdatedBy VITAL SIGNS PATIENT VITAL SIGNS This section displays the mo st recent value for each vital sign as of April 09, 2023 2:16:23 AM [facility] Loinc Code Vital Sign Activity Date Result Updated By 8462-4 Diastolic blood pressure April 08, 2023 3:04:00 PM [facility] 73.0 mm[Hg] [id number] on April 08, 2023 3:14:02 PM [facility] 8867-4 Heart rate April 08, 2023 3:06:00 PM [facility] 152 /min [id number] on April 08, 2023 3:14:03 PM [facility] 46416-3 Oxygen saturation in Arterial blood by Pulse oximetry April 08, 2023 3:06:00 PM [facility] 97.0 % [id number] on April 08, 2023 3:14:03 PM [facility] 9279-1 Respiratory rate April 08, 2023 3:04:00 PM [facility] 18 /min [id number] on April 08, 2023 3:14:02 PM [facility] 8480-6 Systolic blood pressure April 08, 2023 3:04:00 PM [facility] 100.0 mm[Hg] [id number] on April 08, 2023 3:14:02 PM [facility] PEDIATRIC GROWTH CHART - VITAL SIGNS This section displays Head C ircumference Percentile, Weight for Length Percentile and BMI Percentile Loinc Code Pediatric Measure Age (Months) Result Updat ed By HEALTH CONCERNS Problems Concern Status Health Concern problem infor mation not available. Smoking Status Status Years Used Consumed packs p er day Health Concern smoking histo ry information not available. Family History Concern Status Health Concern family histor y information not available. ENCOUNTERS ENCOUNTER INFORMATION Reason for Visit ELEVATED PULSE Admission April 08, 2023 2:52:00 PM [facility] [address] [address] Discharge Patient Not Discharg ed ENCOUNTER DIAGNOSES Notes information is not jie ilable. Code System Diagnosis Onset Date Diagnosis information is not available. ABSTRACT DIAGNOSES Code System Diagnosis Updated By Abstract Diagnosis informati on is not available. CARE TEAM Care Bobbin Stripper Role BRENNA NORIEGA Primary Care CARE TEAM CARE assembler watch train Role on Team Status Start Date End Date Update d By HARI CEJA MD PHY PCP normal April 08, 2023 2:52:40 PM [facility] [id number] on April 08, 2023 2:52:40 PM [facility]
--- OUTSIDE RECORDS SUMMARY | 2023-04-10 21:32 | XMS_ITS | Continuity of Care Document ---
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 Name Role Phone TONY MEJIA Unavailable TONY MEJIA Admitting BRENNA NORIEGA Primary Care TONY MEJIA Primary Attending ALLERGIES AND ADVERSE REACTIONS ALLERGIES AND ADVERSE REACTIONS Code System Allergy Substance Adverse Reaction Date Reaction (Severity) Comment Status Reported By Updated By No Known Allergies [id number] on April 08, 2023 3:16:18 PM UT FAMILY HISTORY RELATION: Father Status: Cause of : Unknown Age at : Unknown SNOMED-CT Diagnosis Age At Onset Information not available RELATION: Mother Status: LIVING SNOMED-CT Diagnosis Age At Onset Information not available RESULTS Patient: KING MARZENA SARAH Date of : [birth year] LABORATORY RESULTS ORDER 200: CBC AUTO W DIFF ( LOINC: 01777-9) ORDER DATE: April 08, 2023 3:30:00 PM UT Specimen Source: Whole Blood PERFORMING LAB: [address] [id number] Result Comment: Final Result Date: April 08, 2023 3:35:00 PM UT (TECH: LT) LOINC TEST FLAG RESULT REFERENCE RANGE UPDA JOSEFINA BY 6690-2 Leukocytes [#/volume] in Blood by Automated count H 12.2 10^3/uL 4.5 10^3/uL - 11.5 10^3/uL April 08, 2023 3:35:00 PM UT (TECH: LT) 789-8 Erythrocytes [#/volume] in Blood by Automated count L 4.22 10^6/uL 4.25 10^6/uL - 5.57 10^6/uL April 08, 2023 3:35:00 PM UTC (TECH: LT) 718-7 Hemoglobin [Mass/volume] in Blood L 12.7 g/dL 13.5 g/dL - 17.2 g/dL April 08, 2023 3:35:00 PM UTC (TECH: LT) 15665-8 Hematocrit [Volume Fraction] of Blood L 38.0 % 42.0 % - 52.0 % April 08, 2023 3:35:00 PM UTC (TECH: LT) 787-2 Erythrocyte mean corpuscular volume [Entitic volume] by Automated count N 90.0 fl 80 fl - 95 fl April 08, 2023 3:35:00 PM UTC (TECH: LT) 99561-0 Erythrocyte mean corpuscular hemoglobin [Entitic mass] in Blood from [place] by Automated count N 30.1 pg 27.0 pg - 34.0 pg April 08, 2023 3:35:00 PM UTC (TECH: LT) 56993-5 Erythrocyte mean corpuscular hemoglobin concentration [Mass/volume] in Blood from Fetus by Automated count N 33.4 g/dL 32.0 g/dL - 36.0 g/dL April 08, 2023 3:35:00 PM UTC (TECH: LT) 21568-1 Platelets [#/volume] in Blood H 467 10^3/uL 150 10^3/uL - 450 10^3/uL April 08, 2023 3:35:00 PM UTC (TECH: LT) 27210-9 Erythrocyte distribution width [Ratio] N 14.1 % 12.3 % - 15.1 % April 08, 2023 3:35:00 PM UTC (TECH: LT) 64077-3 Platelet mean volume [Entitic volume] in Blood by Automated count N 8.4 fl 7.4 fl - 10.4 fl April 08, 2023 3:35:00 PM UTC (TECH: LT) 83795-0 Granulocytes/100 leukocytes in Blood by Automated count [...] 08, 2023 3:35:00 PM UTC (TECH: LT) 05289-2 Immature granulocytes [#/volume] in Blood N 0.2 % 0.0 % - 0.8 % April 08, 2023 3:35:00 PM UTC (TECH: LT) 73129-2 Granulocytes [#/volume] in Blood by Automated count [...] 08, 2023 3:35:00 PM UTC (TECH: LT) 57781-3 Immature granulocytes [#/volume] in Blood N 0.03 10^3/uL April 08, 2023 3:35:00 PM UTC (TECH: LT) 87437-9 Manual differential performed [Presence] in Blood N NO April 08, 2023 3:35:00 PM UTC (TECH: LT) ORDER 300: COMP METABOLIC PA JUAN ALBERTO (LOINC: 58016-6) ORDER DATE: April 08, 2023 3:30:00 PM UTC Specimen Source: Plasma PERFORMING LAB: [place] [id number] Result Comment: Final Result Date: April 08, 2023 3:52:00 PM UTC (TECH: LT) LOINC TEST FLAG RESULT REFERENCE RANGE UPDA JOSEFINA BY 2951-2 Sodium [Moles/volume ] in Serum or Plasma L 132 mmol/L 136 mmol/L - 145 mmol/L April 08, 2023 3:52:00 PM UTC (TECH: LT) 2823-3 Potassium [Moles/volume] in Serum or Plasma N 4.1 mmol/L 3.5 mmol/L - 5.1 mmol/L April 08, 2023 3:52:00 PM UTC (TECH: LT) 2075-0 Chloride [Moles/volu me] in Serum or Plasma L 97 mmol/L 98 mmol/L - 107 mmol/L April 08, 2023 3:52:00 PM UTC (TECH: LT) 2027-9 Carbon dioxide, tota l [Moles/volume] in Serum or Plasma N 25 mmol/L 21 mmol/L - 32 mmol/L April 08, 2023 3:52:00 PM UTC (TECH: LT) 84807-0 Anion gap 3 in Serum or Plasma N 10.0 April 08, 2023 3:52:00 PM UTC (TECH: LT) 2345-7 Glucose [Mass/volume ] in Serum or Plasma H 111 mg/dL 70 mg/dL - 110 mg/dL April 08, 2023 3:52:00 PM UTC (TECH: LT) 3094-0 Urea nitrogen [Mass/volume] in Serum or Plasma N 14 mg/dL 7 mg/dL - 18 mg/dL April 08, 2023 3:52:00 PM UTC (TECH: LT) 2160-0 Creatinine [Mass/volume] in Serum or Plasma N 0.9 mg/dL 0.8 mg/dL - 1.3 mg/dL April 08, 2023 3:52:00 PM UTC (TECH: LT) 3097-3 Urea nitrogen/Creatinine [Mass Ratio] in Serum or Plasma N 15.6 Ratio 9 Ratio - 21 Ratio April 08, 2023 3:52:00 PM UTC (TECH: LT) 20120-7 Glomerular filtratio n rate/1.73 sq M.predicted by Creatinine-based formula (MDRD) N 87 mL/min >60 April 08, 2023 3:52:00 PM UTC (TECH: LT) 2885-2 Protein [Mass/volume ] in Serum or Plasma N 7.1 g/dL 6.4 g/dL - 8.2 g/dL April 08, 2023 3:52:00 PM UTC (TECH: LT) 1751-7 Albumin [Mass/volume ] in Serum or Plasma L 2.3 g/dL 3.4 g/dL - 5.0 g/dL April 08, 2023 3:52:00 PM UTC (TECH: LT) 77332-6 Calcium [Mass/volume ] in Serum or Plasma N 8.8 mg/dL 8.5 mg/dL - 10.1 mg/dL April 08, 2023 3:52:00 PM UT (TECH: LT) 71336-1 Calcium [Mass/volume ] corrected for total protein in Serum or Plasma H 10.2 mg/dL 8.5 mg/dL - 10.1 mg/dL April 08, 2023 3:52:00 PM UT (TECH: LT) 1975-2 Bilirubin.total [Mass/volume] in Serum or Plasma N 0.4 mg/dL 0.4 mg/dL - 1.5 mg/dL April 08, 2023 3:52:00 PM UT (TECH: LT) 1920-8 Aspartate aminotransferase [Enzymatic activity/volume] in Serum or Plasma H 57 U/L 15 U/L - 37 U/L April 08, 2023 3:52:00 PM UT (TECH: LT) 1742-6 Alanine aminotransferase [Enzymatic activity/volume] in Serum or Plasma N 41 U/L 12 U/L - 78 U/L April 08, 2023 3:52:00 PM UT (TECH: LT) 6768-6 Alkaline phosphatase [Enzymatic activity/volume] in Serum or Plasma N 355 U/L April 08, 2023 3:52:00 PM UT (TECH: LT) ORDER 400: TROPONIN QUANT (L OINC: 83414-4) ORDER DATE: April 08, 2023 3:30:00 PM UT Specimen Source: Plasma PERFORMING LAB: [address] [id number] Result Comment: Final Result Date: April 08, 2023 3:52:00 PM UT (TECH: LT) LOINC TEST FLAG RES[place] [address]-8 Troponin I.cardiac panel - Serum or Plasma by High sensitivity method N 43 ng/L 0 ng/L - 76 ng/L April 08 3:52:00 PM UTC (TECH: LT) ORDER 500: LACTIC ACID (LOIN C: 41924-7) ORDER DATE: April 08, 2023 3:30:00 PM UTC Specimen Source: Serum/Plasm a PERFORMING LAB: [place] [id number] Result Comment: Final Result Date: April 08, 2023 3:51:00 PM UTC (TECH: LT) LOINC TEST FLAG [place] [address]-3 Lactate [Mass/volume] in Serum or Plasma N 1.8 mmole/L 0.4 mmole/L - 2.0 mmole/L April 08, 2023 3:51:00 PM UTC (TECH: LT) ORDER 700: PT PROTHROMBIN TI ME W INR (LOINC: 50608-9) ORDER DATE: April 08, 2023 3:30:00 PM UTC Specimen Source: Plasma PERFORMING LAB: [address] [id number] Result Comment: Final Result Date: April 08, 2023 3:46:00 PM UTC (TECH: LT) LOINC TEST FLAG [place] [address]-0 INR in Platelet poor plasma or blood by Coagulation assay N 11.0 seconds 9.1 seconds - 12.0 seconds April 08, 2023 3:46:00 PM UTC (TECH: LT) 6301-6 INR in Platelet poor plasma by Coagulation assay N 1.00 0.9 - 1.1 April 08, 2023 3:46:00 PM UTC (TECH: LT) ORDER 800: PTT PARTIAL THROM B TIME (LOINC: 15523-9) ORDER DATE: April 08, 2023 3:30:00 PM UTC Specimen Source: Plasma PERFORMING LAB: [address] [id number] Result Comment: Final Result Date: April 08, 2023 3:46:00 PM UTC (TECH: LT) LOINC TEST FLAG RES[place] [address]-0 Activated partial thromboplastin time (aPTT) in Platelet poor plasma by Coagulation assay N 31.1 seconds 24.5 seconds - 32.8 seconds April 08, 2023 3:46:00 PM UTC (TECH: LT) ORDER 900: B-TYPE NATRIURETI C PEPTIDE BNP (LOINC: 15762-4) ORDER DATE: April 08, 2023 3:49:00 PM UTC Specimen Source: Whole Blood PERFORMING LAB: [address] [id number] Result Comment: Final Result Date: April 08, 2023 4:13:00 PM UTC (TECH: LT) LOINC TEST FLAG RESULT [place] [address]-1 Natriuretic peptide B [Mass/volume] in Serum or Plasma H 675.0 pg/mL 0.0 pg/mL - 100 pg/mL April 08, 2023 4:13:00 PM UT (TECH: LT) ORDER 1200: D-DIMER QUANTITA TIVE (LOINC: 7799-0) ORDER DATE: April 08, 2023 4:23:00 PM UTC Specimen Source: Plasma PERFORMING LAB: [address] [id number] Result Comment: Final Result Date: April 08, 2023 4:55:00 PM UT (TECH: LT) LOINC TEST FLAG RESULT REFERENCE RANGE UPDA JOSEFINA BY 7799-0 Fibrin D-dimer [Units/volume] in Platelet poor plasma HH 3450.21 ng/mL 0 ng/mL - 500 ng/mL April 08, 2023 4:55:00 PM UT (TECH: LT) LABORATORY NARRATIVE RESULTS Information is not available RADIOLOGY RESULTS ORDER 1000: CT ABD/PELVIS WI TH IV CONTRAST (LOINC: 25620-6) ORDER DATE: April 08, 2023 4:23:00 PM UT PATHOLOGY NARRATIVE RESULTS Information is not available MICROBIOLOGY RESULTS No Micro Labs/Results Exist for Patient BLOOD ADMIN RESULTS Information is not available TREATMENT PLAN DISCHARGE MEDICATIONS Status RXNORM Medication Dose Route Frequency Dates Comments U pdated By Patient discharge medication information is not available. PATIENT OPEN ORDERS Code System Description Frequency Occurrences Priority [place] [address]-7 [facility] EKG study ONE TIME 0 Stat April 08, 2023 3:08:00 PM UT JACKIE Holder MD [id number] on April 08, 2023 3:08:00 PM [facility] 67010-1 [facility] EKG study ONE TIME 0 Stat April 08, 2023 11:08:00 PM UT DEMARCO Peña MD [id number] on April 08, 2023 11:08:00 PM UT SCHEDULED PROCEDURES Code System Description Status Scheduled Date Upd ated By Patient scheduled procedure information is not available. MEDICATIONS HOME MEDICATIONS Status RXNORM Medication Dose Route Frequency Dates Comments R eported By Updated By Active [id number] Proair Digihaler 90 mcg/actuatio n Aerosol Powder, Breath Activ.with Sensor 2.0 PUF INHALED PRN Last Dose: [id number] on April 08, 2023 3:16:21 PM UT Active [id number] promethazine -codeine 6.25-10 mg/5 mL syrup 0.0 PO PRN Last Dose: [id number] on April 08, 2023 3:16:21 PM UT DISCHARGE MEDICATIONS Status RXNORM Medication Dose Route Frequency Dates Comments Physic kiran Updated By No Discharge Medication Info rmation Available INPATIENT MEDICATIONS Status RXNORM Medication Dose Route Frequency Rate Quantity Dates Comments Physician Updated By Discont inued [id number] diltiazem (CARDIZEM) 25 MG/5ML SOLN 25.0 MG IV PUSH ONE TIME ONLY Start: 2023 4:33:0 0 PM UTC End: 2023 4:33:0 0 PM UTC JACKIE Holder MD INTERFAC ED on April 08, 2023 4:32:00 PM UTC Discont inued 0246260 amiodarone (NEXTERONE) 360 MG/200ML SOLN 360.0 MG INTRAV ENOUS ONE TIME ONLY Start: 2023 5:45:0 0 PM UTC End: 2023 5:45:0 0 PM UTC JAKCIE Holder MD INTERFAC ED on April 08, 2023 5:45:00 PM UTC Discont inued 5137507 amiodarone HCL (CORDARONE) 150 MG/3ML SOLN 150.0 MG INTRAV ENOUS ONE TIME ONLY Start: 2023 5:54:0 0 PM UTC End: 2023 5:54:0 0 PM UTC JACKIE Holder MD INTERFAC ED on April 08, 2023 5:53:00 PM UTC Discont inued [id number] ELIQUIS 2.5 MG TABS 2.5 MG BY MOUTH ONE TIME ONLY Start: 2023 9:08:0 0 PM UTC End: 2023 9:08:0 0 PM UTC JACKIE Holder MD INTERFAC ED on April 08, 2023 9:07:00 PM UTC Discont inued 278533 metoprolol tartrate(LO PRESSOR) 1 MG/ML SOLN 5.0 MG IV PUSH ONE TIME ONLY Start: 2023 9:08:0 0 PM UTC End: 2023 9:08:0 0 PM UTC JACKIE Holder MD INTERFAC ED on April 08, 2023 9:07:00 PM UTC Discont inued 812845 metoprolol tartrate(LO PRESSOR) 1 MG/ML SOLN 5.0 MG IV PUSH ONE TIME ONLY Start: 2023 9:10:0 0 PM UTC End: 2023 9:10:0 0 PM UTC JACKIE Holder MD INTERFAC ED on April 08, 2023 9:08:00 PM UTC Discont inued 527822 digoxin (LANOXIN) 0.25 MG/ML SOLN 500.0 MCG IV PUSH ONE TIME ONLY Start: 2023 10:20: 00 PM UTC End: 2023 10:20: 00 PM UTC JACKIE Holder MD INTERFAC ED on April 08, 2023 10:19:00 PM UTC SOCIAL HISTORY SOCIAL HISTORY SNOMED-CT Social History Element Description Effective Dates Offered Cessation Comment UpdatedBy [id number] Historical Tobacco smoking status Current Every Day Smoker Yes [id number] on August 20, 2018 6:11:54 PM UTC SOCIAL HISTORY - Gender Sex: Male SOCIAL HISTORY - Sexual Behavior Sexual Orientation Gender Identity SNOMED-CT Description SNO MED -CT Description Activity Level No of Partners Partner Type UpdatedBy VITAL SIGNS PATIENT VITAL SIGNS This section displays the mo st recent value for each vital sign as of April 10, 2023 12:22:44 PM UT Loinc Code Vital [place] [address]-5 Body weight Measured April 10, 2023 12:15:16 AM UTC 54.431 kg (120.0 lb) [id number] on April 10, 2023 12:15:16 AM UTC 8462-4 Diastolic blood pressure April 09, 2023 12:00:00 AM UTC 67.0 mm[Hg] [id number] on April 10, 2023 12:15:50 AM UTC 8867-4 Heart rate April 09, 2023 12:03:00 AM UTC 151 /min [id number] on April 10, 2023 12:15:[place] [address]-7 Oxygen saturation in Arterial blood by Pulse oximetry April 09, 2023 12:03:00 AM UTC 93.0 % [id number] on April 10, 2023 12:15:51 AM UT 9279-1 Respiratory rate April 08, 2023 10:45:00 PM UTC 15 /min [id number] on April 10, 2023 12:15:39 AM UTC 8480-6 Systolic blood pressure April 09, 2023 12:00:00 AM UTC 100.0 mm[Hg] [id number] on April 10, 2023 12:15:50 AM UT PEDIATRIC GROWTH CHART - VITAL SIGNS This [...] available. ENCOUNTERS ENCOUNTER INFORMATION Reason for Visit IRREGULAR PULSE Admission April 08, 2023 2:52:00 PM UT B [address] [id number] Discharge April 09, 2023 12:14:00 AM UT LEFT AGAINST ADVICE OR DISCONTINUED ENCOUNTER DIAGNOSES Notes information is not jie ilable. Code System Diagnosis Onset Date Diagnosis information is not available. 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 [id number] on April 10, 2023 12:22:01 PM UT I82.210 ICD10 ACUTE EMBOLISM A ND THROMBOSIS OF SUPERIOR VENA CAVA [id number] on April 10, 2023 12:22:01 PM UT J18.8 ICD10 OTHER PNEUMONIA, UNSPECIFIED ORGANISM [id number] on April 10, 2023 12:22:01 PM [facility] J44.0 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 [id number] on April 10, 2023 12:22:01 PM UT F32.A ICD10 DEPRESSION, UNSPECIFIED [id number] on April 10, 2023 12:22:01 PM UT F17.210 ICD10 NICOTINE DEPENDE NCE, CIGARETTES, UNCOMPLICATED [id number] on April 10, 2023 12:22:01 PM [facility] Z79.899 ICD10 OTHER FPC (CURRENT) DR SAMIRA THERAPY [id number] on April 10, 2023 12:22:01 PM [facility] CARE TEAM Care Landscaping And Groundskeeping Laborer Role TONY MEJIA Referring TONY MEJIA Admitting BRENNA NORIEGA Primary Care TONY MEJIA Primary Attending CARE TEAM CARE progressive assembler and fitter Role on Team Status Start Date End Date Update d By JACKIE Holder MD Referring normal April 08, 2023 3:52:35 PM [facility] April 08, 2023 5:00:00 AM UT [id number] on April 08, 2023 3:52:35 PM [facility] JACKIE Holder MD Attending normal April 08, 2023 3:52:35 PM [facility] April 08, 2023 5:00:00 AM [facility] [id number] on April 08, 2023 3:52:35 PM [facility] JACKIE Holder MD Admitting normal April 08, 2023 3:52:35 PM [facility] April 08, 2023 5:00:00 AM [facility] [id number] on April 08, 2023 3:52:35 PM [facility] HARI CEJA MD PHY PCP normal April 08, 2023 2:52:40 PM [facility] April 08, 2023 5:00:00 AM [facility] [id number] on April 08, 2023 3:52:35 PM [facility]
--- OUTSIDE RECORDS SUMMARY | 2023-04-10 21:32 | XMS_ITS | Continuity of Care Document ---
Author Name Unknown Address [address] [place] [id number] Organization [facility] Phone Care Team Providers Care Retail Inventory Control Clerk Name Role Phone TONY MEJIA Unavailable TONY MEJIA Admitting BRENNA NORIEGA Primary Care TONY MEJIA Primary Attending [phone] ALLERGIES AND ADVERSE REACTIONS ALLERGIES AND ADVERSE REACTIONS Code System Allergy Substance Adverse Reaction Date Reaction (Severity) Comment Status Reported By Updated By No Known Allergies [id number] on April 08, 2023 3:16:18 PM UT FAMILY HISTORY RELATION: Father Status: Cause of : Unknown Age at : Unknown SNOMED-CT Diagnosis Age At Onset Information not available RELATION: Mother Status: LIVING SNOMED-CT Diagnosis Age At Onset Information not available RESULTS Patient: KING MARZENA SARAH Date of : [birth year] LABORATORY RESULTS ORDER 200: CBC AUTO W DIFF ( LOINC: 99674-6) ORDER DATE: April 08, 2023 3:30:00 PM UT Specimen Source: Whole Blood PERFORMING LAB: [address] [id number] Result Comment: Final Result Date: April 08, [...] 08, 2023 3:35:00 PM UTC (TECH: LT) 59594-7 Hematocrit [Volume Fraction] of Blood L 38.0 % 42.0 % - 52.0 % April 08, 2023 3:35:00 PM UTC (TECH: LT) 787-2 Erythrocyte mean corpuscular volume [Entitic volume] by Automated count N 90.0 fl 80 fl - 95 fl April 08, 2023 3:35:00 PM UTC (TECH: LT) 38119-0 Erythrocyte mean corpuscular hemoglobin [Entitic mass] in Blood from Fetus by Automated count N 30.1 pg 27.0 pg - 34.0 pg April 08, 2023 3:35:00 PM UTC (TECH: LT) 39036-3 Erythrocyte mean corpuscular hemoglobin concentration [Mass/volume] in Blood from Fetus by Automated count N 33.4 g/dL 32.0 g/dL - 36.0 g/dL April 08, 2023 3:35:00 PM UTC (TECH: LT) 60015-8 Platelets [#/volume] in Blood H 467 10^3/uL 150 10^3/uL - 450 10^3/uL April 08, 2023 3:35:00 PM UTC (TECH: LT) 76239-5 Erythrocyte distribution width [Ratio] N 14.1 % 12.3 % - 15.1 % April 08, 2023 3:35:00 PM UTC (TECH: LT) 76955-5 Platelet mean volume [Entitic volume] in Blood by Automated count N 8.4 fl 7.4 fl - 10.4 fl April 08, 2023 3:35:00 PM UTC (TECH: LT) 89745-7 Granulocytes/100 leukocytes in Blood by Automated count [...] 08, 2023 3:35:00 PM UTC (TECH: LT) 02555-1 Immature granulocytes [#/volume] in Blood N 0.2 % 0.0 % - 0.8 % April 08, 2023 3:35:00 PM UTC (TECH: LT) 58496-0 Granulocytes [#/volume] in Blood by Automated count [...] 08, 2023 3:35:00 PM UTC (TECH: LT) 18805-5 Immature granulocytes [#/volume] in Blood N 0.03 10^3/uL April 08, 2023 3:35:00 PM UTC (TECH: LT) 40088-7 Manual differential performed [Presence] in Blood N NO April 08, 2023 3:35:00 PM UTC (TECH: LT) ORDER 300: COMP METABOLIC PA JUAN ALBERTO (LOINC: 95191-3) ORDER DATE: April 08, 2023 3:30:00 PM UTC Specimen Source: Plasma PERFORMING LAB: [place] [id number] Result Comment: Final Result Date: April 08, [...] 08, 2023 3:52:00 PM UTC (TECH: LT) 69684-6 Anion gap 3 in Serum or Plasma [...] 08, 2023 3:52:00 PM UTC (TECH: LT) 40177-8 Glomerular filtratio n rate/1.73 sq M.predicted by [...] 08, 2023 3:52:00 PM UTC (TECH: LT) 17315-3 Calcium [Mass/volume ] in Serum or Plasma N 8.8 mg/dL 8.5 mg/dL - 10.1 mg/dL April 08, 2023 3:52:00 PM UT (TECH: LT) 75715-1 Calcium [Mass/volume ] corrected for total protein [...] LT) ORDER 400: TROPONIN QUANT (L OINC: 98646-6) ORDER DATE: April 08, 2023 3:30:00 PM UT Specimen Source: Plasma PERFORMING LAB: [address] [id number] Result Comment: Final Result Date: April 08, 2023 3:52:00 PM UT (TECH: LT) LOINC TEST FLAG [place] [address]-1 Troponin I.cardiac panel - Serum or Plasma by High sensitivity method N 43 ng/L 0 ng/L - 76 ng/L April 08 3:52:00 PM UTC (TECH: LT) ORDER 500: LACTIC ACID (LOIN C: 40361-8) ORDER DATE: April 08, 2023 3:30:00 PM UTC Specimen Source: Serum/Plasm a PERFORMING LAB: [place] [id number] Result Comment: Final Result Date: April 08, 2023 3:51:00 PM UTC (TECH: LT) LOINC TEST FLAG [place] [address]-0 Lactate [Mass/volume] in Serum or Plasma N 1.8 mmole/L 0.4 mmole/L - 2.0 mmole/L April 08, 2023 3:51:00 PM UTC (TECH: LT) ORDER 700: PT PROTHROMBIN TI ME W INR (LOINC: 19834-8) ORDER DATE: April 08, 2023 3:30:00 PM UTC Specimen Source: Plasma PERFORMING LAB: [address] [id number] Result Comment: Final Result Date: April 08, 2023 3:46:00 PM UTC (TECH: LT) LOINC TEST FLAG RESULT [place] [address]-3 INR in Platelet poor plasma or blood by Coagulation assay N 11.0 seconds 9.1 seconds - 12.0 seconds April 08, 2023 3:46:00 PM UTC (TECH: LT) 6301-6 INR in Platelet poor plasma by Coagulation assay N 1.00 0.9 - 1.1 April 08, 2023 3:46:00 PM UTC (TECH: LT) ORDER 800: PTT PARTIAL THROM B TIME (LOINC: 63956-1) ORDER DATE: April 08, 2023 3:30:00 PM UTC Specimen Source: Plasma PERFORMING LAB: [address] [id number] Result Comment: Final Result Date: April 08, 2023 3:46:00 PM UTC (TECH: LT) LOINC TEST FLAG RES[place] [address]-0 Activated partial thromboplastin time (aPTT) in Platelet poor plasma by Coagulation assay N 31.1 seconds 24.5 seconds - 32.8 seconds April 08, 2023 3:46:00 PM UTC (TECH: LT) ORDER 900: B-TYPE NATRIURETI C PEPTIDE BNP (LOINC: 22815-6) ORDER DATE: April 08, 2023 3:49:00 PM UTC Specimen Source: Whole Blood PERFORMING LAB: [address] [id number] Result Comment: Final Result Date: April 08, 2023 4:13:00 PM UTC (TECH: LT) LOINC TEST FLAG RESULT [place] [address]-9 Natriuretic peptide B [Mass/volume] in Serum or Plasma H 675.0 pg/mL 0.0 pg/mL - 100 pg/mL April 08, 2023 4:13:00 PM UT (TECH: LT) ORDER 1200: D-DIMER QUANTITA TIVE (LOINC: 7799-0) ORDER DATE: April 08, 2023 4:23:00 PM UTC Specimen Source: Plasma PERFORMING LAB: [address] [id number] Result Comment: Final Result Date: April 08, [...] CT ABD/PELVIS WI TH IV CONTRAST (LOINC: 87934-7) ORDER DATE: April 08, 2023 4:23:00 PM [...] Priority [place] [address] [facility] EKG study ONE TIME 0 Stat April 08, 2023 3:08:00 PM UT JACKIE Holder MD [id number] on April 08, 2023 3:08:00 PM [facility] 15226-5 [facility] EKG study ONE TIME 0 Stat April 08, 2023 11:08:00 PM UT DEMARCO Peña MD [id number] on April 08, 2023 11:08:00 PM UT SCHEDULED PROCEDURES Code System Description Status Scheduled Date Upd ated By Patient scheduled procedure information is not available. MEDICATIONS HOME MEDICATIONS Status RXNORM Medication Dose Route Frequency Dates Comments R eported By Updated By Active [id number] Proair Digihaler 90 mcg/actuatio n Aerosol Powder, Breath Activ.with Sensor 2.0 PUF INHALED PRN Last Dose: [id number] on April 08, 2023 3:16:21 PM UT Active 233434 promethazine -codeine 6.25-10 mg/5 mL syrup 0.0 PO PRN Last Dose: [id number] on April 08, 2023 3:16:21 PM UT DISCHARGE MEDICATIONS Status RXNORM Medication Dose Route Frequency Dates Comments Physic kiran Updated By No Discharge Medication Info rmation Available INPATIENT MEDICATIONS Status RXNORM Medication Dose Route Frequency Rate Quantity Dates Comments Physician Updated By Discont inued [id number] diltiazem (CARDIZEM) 25 MG/5ML SOLN 25.0 MG IV PUSH ONE TIME ONLY Start: 2023 4:33:0 0 PM UTC End: 2023 4:33:0 0 PM UTC JACKIE Holder MD INTERFAC ED on April 08, 2023 4:32:00 PM UTC Discont inued 1873924 amiodarone (NEXTERONE) 360 MG/200ML SOLN 360.0 MG INTRAV ENOUS ONE TIME ONLY Start: 2023 5:45:0 0 PM UTC End: 2023 5:45:0 0 PM UTC JACKIE Holder MD INTERFAC ED on April 08, 2023 5:45:00 PM UTC Discont inued [id number] amiodarone HCL (CORDARONE) 150 MG/3ML SOLN 150.0 MG INTRAV ENOUS ONE TIME ONLY Start: 2023 5:54:0 0 PM UTC End: 2023 5:54:0 0 PM UTC JACKIE Holder MD INTERFAC ED on April 08, 2023 5:53:00 PM UTC Discont inued [id number] ELIQUIS 2.5 MG TABS 2.5 MG BY MOUTH ONE TIME ONLY Start: 2023 9:08:0 0 PM UTC End: 2023 9:08:0 0 PM UTC JACKIE Holder MD INTERFAC ED on April 08, 2023 9:07:00 PM UTC Discont inued [id number] metoprolol tartrate(LO PRESSOR) 1 MG/ML SOLN 5.0 MG IV PUSH ONE TIME ONLY Start: 2023 9:08:0 0 PM UTC End: 2023 9:08:0 0 PM UTC JACKIE Holder MD INTERFAC ED on April 08, 2023 9:07:00 PM UTC Discont inued [id number] metoprolol tartrate(LO PRESSOR) 1 MG/ML SOLN 5.0 MG IV PUSH ONE TIME ONLY Start: 2023 9:10:0 0 PM UTC End: 2023 9:10:0 0 PM UTC JACKIE Holder MD INTERFAC ED on April 08, 2023 9:08:00 PM UTC Discont inued [id number] digoxin (LANOXIN) 0.25 MG/ML SOLN 500.0 MCG IV PUSH ONE TIME ONLY Start: 2023 10:20: 00 PM UTC End: 2023 10:20: 00 PM UTC JACKIE Holder MD INTERFAC ED on April 08, 2023 10:19:00 PM UTC SOCIAL HISTORY SOCIAL HISTORY SNOMED-CT Social History Element Description Effective Dates Offered Cessation Comment UpdatedBy [id number] Historical Tobacco smoking status Current Every Day Smoker Yes [id number] on August 20, 2018 6:11:54 PM UTC SOCIAL HISTORY - Gender Sex: Male SOCIAL HISTORY - Sexual Behavior Sexual Orientation Gender Identity SNOMED-CT Description SNO MED -CT Description Activity Level No of Partners Partner Type UpdatedBy VITAL SIGNS PATIENT VITAL SIGNS This section displays the mo st recent value for each vital sign as of April 09, 2023 1:14:05 AM UT Loinc Code Vital Sign Activity Date Result Updated By 8462-4 Diastolic blood pressure April 08, 2023 10:45:00 PM UTC 63.0 mm[Hg] [id number] on April 09, 2023 12:07:40 AM [facility] 8867-4 Heart rate April 09, 2023 12:00:00 AM UTC 151 /min [id number] on April 09, 2023 12:07:42 AM [facility] 48692-5 Oxygen saturation in Arterial blood by Pulse oximetry April 09, 2023 12:00:00 AM UTC 93.0 % [id number] on April 09, 2023 12:07:42 AM [facility] 9279-1 Respiratory rate April 08, 2023 10:45:00 PM UTC 15 /min [id number] on April 09, 2023 12:07:40 AM UT 8480-6 Systolic blood pressure April 08, 2023 10:45:00 PM UTC 99.0 mm[Hg] [id number] on April 09, 2023 12:07:40 AM [facility] PEDIATRIC GROWTH CHART [...] April 08, 2023 2:52:00 PM UT B [address] [address] Discharge April 09, 2023 12:14:00 AM UT LEFT AGAINST ADVICE OR DISCONTINUED ENCOUNTER DIAGNOSES Notes information is not jie ilable. Code System Diagnosis Onset Date Diagnosis information is not available. ABSTRACT DIAGNOSES Code System Diagnosis Updated By Abstract Diagnosis informati on is not available. CARE TEAM Care Retail Inventory Control Clerk Role TONY MEJIA Referring TONY MEJIA Admitting BRENNA NORIEGA Primary Care TONY MEJIA Primary Attending CARE TEAM CARE tobacco stripper hand Role on Team Status Start Date End Date Update d By JACKIE Holder MD Referring normal April 08, 2023 3:52:35 PM UT April 09, 2023 12:14:00 AM [facility] [id number] on April 08, 2023 3:52:35 PM [facility] JACKIE Holder MD Attending normal April 08, 2023 3:52:35 PM UT April 09, 2023 12:14:00 AM [facility] [id number] on April 08, 2023 3:52:35 PM UT JACKIE Holder MD Admitting normal April 08, 2023 3:52:35 PM UTC April 09, 2023 12:14:00 AM [facility] [id number] on April 08, 2023 3:52:35 PM [facility] HARI CEJA MD PHY PCP normal April 08, 2023 2:52:40 PM UTC April 09, 2023 12:14:00 AM [facility] [id number] on April 08, 2023 3:52:35 PM [facility]
[2023-04-11] VITALS (69 sets, daily range): BP systolic 69–135; BP diastolic 35–76; PULSE 49–98; RESP 13–21; TEMP 36.4–36.7; O2SAT 91–100; BMI 19.5
--- NOTE | 2023-04-11 00:48 | ECG_ITS ---
APPROVED REPORT Exam: Resting ECG HR:58 bpm ECG Measurements Heart Rate 58 AXES MD 162 P 85 QRSd 154 QRS 102 QT 451 T 81 QTc 447 Conclusion SINUS BRADYCARDIA POSSIBLE LEFT ATRIAL ENLARGEMENT [-0.1mV P-WAVE IN V1/V2] RIGHT AXIS DEVIATION [QRS AXIS > 100] RIGHT BUNDLE BRANCH BLOCK [120+ ms QRS DURATION, UPRIGHT V1, 40+ ms S IN I/aVL/V4/V5/V6] ABNORMAL ECG UNCONFIRMED REPORT Electronically signed by : Dick Radford MD 04/11/2023 20:09:19
--- NOTE | 2023-04-11 00:58 | PC.NURSE ---
Patient became bradycardic with HR 50-59. Rhythm seen to be NSR without ectopy noted. EKG obtained after titrating Cardizem gtt. Will continue to titrate to off. MAIL HANDLER SORTER notified of acute changes. Care continues.
--- NOTE | 2023-04-11 01:03 | PC.NURSE ---
Patient maintaining NSR at rate of 60-65 without ectopy. Cardizem gtt titrated to off.
[2023-04-11] MEDS: SODIUM CHLORIDE 0.9% 500ML BAG 500 ML IV (02:13)
[2023-04-11] MEDS: ENOXAPARIN 60MG/0.6ML SYRINGE 55 MG SQ ×2 (02:14→14:07)
--- NOTE | 2023-04-11 02:49 | PC.NURSE ---
SUBWAY TRAIN OPERATOR aware of patient's continued hypotension. Would like to let patient receive his 500mL of NS and then reevaluate for possibly starting Levophed.
[2023-04-11] MEDS: NOREPINEPHRINE BITARTRATE 8 MG in DEXTROSE 5 % IN WATER 250 ML 3.87000000000000011 MG IV (03:20)
--- NOTE | 2023-04-11 04:16 | PC.NURSE ---
READING RECOVERY TEACHER made aware that patient has become more bradycardic with rate 40-50's
--- NOTE | 2023-04-11 05:54 | PC.NURSE ---
Patient started shift on 15mL/hr Cardizem gtt and was tolerating well, but still having episodes of Afib RVR with rates 90-130. His BP remained low; however, per dayshift Attending they were okay with the readings. Patient converted to NSR with rates 60-70; however, soon became bradycardic with rates in the 50's. Cardizem gtt titrated to off. BP remained low, but systolics were <70 and MAP <65. Began IV fluids and quickly converted to Levophed for pressor support. Patient tolerated titration of Levophed to 16mcg and is currently maintaining appropriate vitals. Patient remains sinus alayna with rates 50-59; however, does drop to as low as 47-49 at times-- nightshift STEAMFITTER SUPERVISOR aware. Care continues.
--- NOTE | 2023-04-11 06:57 | PC.NURSE ---
Radiology at bedside completing echo.
--- NOTE | 2023-04-11 07:00 | CA_ITS ---
APPROVED REPORT EXAM: Comprehensive 2D, Doppler, and color-flow Echocardiogram Turbine Technician: Gavi Warren CRT Ht: 5 ft 2 in Wt: 112lbs BSA: 1.49 BP: 97/63 mmHg Indications: COPD, Shortness of Breath, Atrial Fibrillation, Palpitations, Hyperlipidemia, smoker 2D Dimensions LA Volume 42.90 mL LA Volume Index 28.00 mL/m2 (M/F) 16-34 M-Mode Dimensions RVDd 3.26 cm (0.9-2.6) LA Diam 3.70 cm (1.9-4.0) LVDd 4.74 cm (3.5-5.7) LVDs 3.08 cm (3.5-5.7) IVSd 1.25 cm (0.6-1.1) PWd 0.99 cm (0.6-1.1) EF (Teich) 64.30% FS 35.00% EDV (Teich) 104.40 mL TAPSE 2.02 (<1.7) ESV (Teich) 37.30 mL LV Diastology E Decel Time 200 (160-240 msec) E/A Ratio 1.43 MED A' 5.80 cm/s LAT A' 7.40 cm/s Aortic Valve AI PHT 702.00 ms AO Peak GR. 6.20 mmHg Mitral Valve MV A Velocity 56.0 (40-130 cm/s) E/A Ratio 1.43 Pulmonary Valve PV Peak Velocity 162.0 (50-150 cm/s) Tricuspid Valve TR P. Velocity 264.00 cm/s RAP Estimate 10.00 mmHg RVSP 38.00 mmHg Left Ventricle The left ventricle is normal size. The left ventricular systolic function is normal. The left ventricular ejection fraction is within the normal range. There is normal left ventricular wall thickness. The septum is asynchronous. Grade 2 diastolic dysfunction is present. LVEF is 60%. Right Ventricle Right ventricle is moderately dilated. Right ventricle is moderately hypokinetic. Atria Left atrium is moderately dilated. Right atrium is moderately dilated. There is no Doppler evidence of interatrial shunt. Aortic Valve The aortic valve is normal in structure. There is no aortic valvular stenosis. Trace aortic regurgitation. Mitral Valve The mitral valve is normal in structure. No evidence of mitral valve stenosis. Mild mitral regurgitation. Tricuspid Valve The tricuspid valve leaflets are thin and pliable. Mild tricuspid regurgitation. RVSP is 30-35 mmHg. Pulmonic Valve The pulmonary valve is normal in structure. Mild pulmonic regurgitation. Great Vessels The aortic root is normal in size. The ascending aorta is normal in size. IVC is normal in size and collapses >50% with inspiration. Pericardium Small sized, circumferential pericardial effusion is present. The largest pocket measures 0.3 cm in diastole. There are no echo indications of tamponade. Other Information Study Quality: Adequate Conclusion Normal LV systolic function. Grade 2 diastolic dysfunction. Asynchronous septum. Moderate RV dilation with moderate RV dysfunction. Mild MR, mild TR. Electronically signed by : Lore Mars MD 04/11/2023 11:21:46
[2023-04-11] MEDS: IPRATROPIUM BROMIDE 0.5 MG/2.5ML SOLUTION IH ×2 (07:23→10:05)
[2023-04-11 07:54] LABS: Alanine Aminotransferase 45 U/L (12-78); Albumin/Globulin Ratio 0.9 (1.1-1.8); Alkaline Phosphatase 304 U/L (38-126); Anion Gap 13.3 mEq/L (5-15); Aspartate Amino Transferase 67 U/L (17-59); Bilirubin,Total 0.3 mg/dl (0.2-1.3); Blood Urea Nitrogen 30 mg/dl (9-20); Calcium 8.2 mg/dl (8.4-10.2); Carbon Dioxide 20 mmol/L (22.0-30.0); Chloride 102 mmol/L (98-107); Creatinine Clearance Estimated 42 mL/min (50-200); Estimated Glomerular Filt Rate 65 ml/min (>60); GFR (African American) 79 ML/MIN (>60); Globulin 3.3 g/dL (1.3-3.2); Glucose 166 mg/dl (74-100); Magnesium 2.7 mg/dl (1.6-2.3); Potassium 4.3 mmoL/L (3.5-5.1); Sodium 131 mmol/L (136-145); Total Protein,Serum 6.3 g/dl (6.3-8.2)
--- NOTE | 2023-04-11 07:58 | HMH.PHAINT1 ---
Pharmacy Intervention Comments: Home med list verified with patient at bedside.
[2023-04-11 08:07] LABS: Basophils % 0.2 % (0.1-2.0); Eosinophils % 0.1 % (0.1-12.0); Hematocrit 37.4 % (42.0-52.0); Lymphocytes # 0.7 K/mm3 (0.7-4.5); Lymphocytes % 4.5 % (10-50); Mean Corpuscular HGB Conc 31.4 g/dL (31.8-35.4); Mean Corpuscular Hemoglobin 29.9 pg (27.0-31.2); Mean Corpuscular Volume 95.3 fl (80-94); Mean Platelet Volume 8.2 fl (7.4-10.4); Monocytes # 0.4 K/mm3 (0.1-1.0); Monocytes % 2.6 % (1.7-9.3); Neutrophils % 92.6 % (37.0-80.0); Platelet Count 627 K/mm3 (142-424); Red Blood Count 3.93 M/mm3 (4.60-6.20); Red Cell Distribution Width 14.2 % (11.5-17.5); White Blood Count 16.2 K/mm3 (4.8-10.8)
[2023-04-11 08:20] LABS: MANUAL DIFFERENTIAL MANUAL DIFFERENTIAL (MANUAL DIFF)
[2023-04-11 08:28] LABS: Hemoglobin 11.8 g/dL (14.1-18.0)
[2023-04-11] MEDS: guaiFENesin 600 MG TAB.ER.12H PO ×2 (09:06→20:41)
[2023-04-11] MEDS: FUROSEMIDE 40MG/4ML VIAL 40 MG IV ×2 (09:06→16:19)
[2023-04-11 09:19] LABS: Lymphocytes % 6 % (10-50); Monocytes % 1 % (2-9); Neutrophils % 91 % (42-76); Total Cells Counted 100
[2023-04-11 09:21] LABS: Platelet Estimate Marked Increase; RBC Morphology Normal
--- NOTE | 2023-04-11 09:37 | P.CONS_ITS ---
History of Present Illness History of present illness: Mr. Guthrie is a 73-year-old male presented to the chest discomfort and respiratory distress ,, CT on admission showed lung mass and lymphadenopathy and pulmonary was called for further evaluation and management. [facility] Disclaimer: The information contained in this section may have been updated after the patient was seen, as this information can be updated by other users. Medical History (Updated 04/11/23 @ 12:01 by Federico Mcgarry MD) COPD (chronic obstructive pulmonary disease) Distended bladder Hemoptysis Hilar lymphadenopathy HLD (hyperlipidemia) Mediastinal lymphadenopathy PNA (pneumonia) Pulmonary emphysema Urinary retention Surgical History H/O hernia repair Hx of tonsillectomy Family History Other Atrial fibrillation Cancer Leukemia Stroke Social History Smoking Status: Current some day smoker tobacco type: cigarettes packs per day: 1 alcohol intake: never current occupational status: retired Travel in the last 8 weeks: None Review of Systems Constitutional Constitutional: Reports anorexia and Reports fatigue Eyes Eyes: Denies eye discharge, Denies dry eyes, Denies irritation and Denies itchy eyes ENT Ears, Nose, Mouth, and Throat: Denies epistaxis, Denies facial pain, Denies lip swelling and Denies throat swelling *Cardiovascular Cardiovascular: Reports dyspnea and Reports dyspnea on exertion *Respiratory Respiratory: Denies change in phlegm color, Reports chest congestion, Reports cough, Reports dyspnea, Reports dyspnea on exertion, Denies excessive phlegm production, Reports hemoptysis and Reports wheezing *Gastrointestinal Gastrointestinal: Denies abdominal pain, Denies belching and Denies cramping *Musculoskeletal Musculoskeletal: Reports back pain, Reports myalgias and Reports other (No small joint swelling or Pain) *Neurologic Neurologic: Reports as per HPI Psychiatric Psychiatric: Denies homicidal ideation and Denies suicidal ideation Endocrine Endocrine: Reports fatigue and Denies heat intolerance Hematologic/Lymphatic Hematologic/Lymphatic: Denies easy bleeding and Denies lymphadenopathy Allergic/Immunologic Allergic/Immunologic: Denies itchy eyes, Denies lip swelling, Denies throat swelling and Reports wheezing Pulmonology Exam Inpatient Vital signs and Labs for Last 24 Hours: Temp Pulse Resp BP Pulse Ox O2 Del Method O2 Flow Rate 97.9 F 60 20 93/53 L 93 L Nasal Cannula 2 04/11/23 08:00 04/11/23 08:00 04/11/23 07:00 04/11/23 07:00 04/11/23 08:10 04/11/23 08:10 04/11/23 08:10 Laboratory Results - last 24 hr 04/10/23 10:50: WBC 13.1 H, RBC 4.42 L, Hgb 13.5 L, Hct 41.9 L, MCV 94.8 H, MCH 30.6, MCHC 32.2, RDW 14.0, Plt Count 627 H, MPV 8.2, Neut % (Auto) 86.6 H, Lymph % (Auto) 7.9 L, [place] % (Auto) 5.1, Eos % (Auto) 0.4, Baso % (Auto) 0.1, Neut # (Auto) 11.3 H, Lymph # (Auto) 1.0, [place] # (Auto) 0.7, Eos # (Auto) 0.1, Baso # (Auto) 0.0, Total Counted 100, Neutrophils % (Manual) 78 H, Band Neutrophils % 5.0, Lymphocytes % (Manual) 3 L, Monocytes % (Manual) 14 H, Platelet Estimate Ma rked increase, RBC Morphology Normal, Sodium 135 L, Potassium 3.9, Chloride 102, Carbon Dioxide 23, Anion Gap 13.9, BUN 18, Creatinine 0.70, Estimated Creat Clear 48, Estimated GFR 110, Est GFR ( Amer) 133, Glucose 101 H, Calcium 8.7, Total Bilirubin 0.6, AST 68 H, ALT 48, Alkaline Phosphatase 401 H, Troponin I 0.04 H, NT-Pro-B Natriuret Pep 5980 H, Total Protein 6.8, Albumin 3.3 L, Globulin 3.5 H, Albumin/Globulin Ratio 0.9 L 04/10/23 14:30: Troponin I 0.04 H 04/10/23 17:09: Troponin I 0.04 H, Procalcitonin 0.130 04/11/23 07:12: WBC 16.2 H, RBC 3.93 L, Hgb 11.8 L D, Hct 37.4 L, MCV 95.3 H, MCH 29.9, MCHC 31.4 L, RDW 14.2, Plt Count 627 H, MPV 8.2, Neut % (Auto) 92.6 H, Lymph % (Auto) 4.5 L, [place] % (Auto) 2.6, Eos % (Auto) 0.1, Baso % (Auto) 0.2, Neut # (Auto) 15.0 H, Lymph # (Auto) 0.7, [place] # (Auto) 0.4, Eos # (Auto) 0.0, Baso # (Auto) 0.0, Total Counted 100, Neutrophils % (Manual) 91 H, Band Neutrophils % 2.0, Lymphocytes % (Manual) 6 L, Monocytes % (Manual) 1 L, Platelet Estimate Marked increase, RBC Morphology Normal, Sodium 131 L, Potassium 4.3, Chloride 102, Carbon Dioxide 20 L, Anion Gap 13.3, BUN 30 H D, Creatinine 1.10 D, Estimated Creat Clear 42, Estimated GFR 65, Est GFR ( Amer) 79 D, Glucose 166 H D, Calcium 8.2 L, Magnesium 2.7 H, Total Bilirubin 0.3, AST 67 H, ALT 45, Alkaline Phosphatase 304 H, Total Protein 6.3, Albumin 3.0 L, Globulin 3.3 H, Albumin/Globulin Ratio 0.9 L I & O for Labs for Last 24 Hours: Intake & Output 04/08/23 04/09/23 04/10/23 04/11/23 23:59 23:59 23:59 23:59 Intake Total 125.167 / 590.167 619.259 / 619.259 Output Total 200 / 400 500 / 500 Balance -74.833 / 190.167 119.259 / 119.259 Weight 112 lb Constitutional: Present moderate distress Head: Present normocephalic and atraumatic ENT: Present normal exam, normal oropharynx and mucous membranes moist Neck: Present normal inspection and full ROM Respiratory: Present normal respiratory effort and able to speak in complete se ntences; Absent respiratory distress or wheezes Cardiac: Present S1/S2, Tachycardia and radial pulses present GI: Present soft and distention; Absent tenderness or guarding Skin: Present intact; Absent cyanosis or jaundice Neuro: Present alert, awake and oriented x 3 Extremities: Present normal inspection; Absent clubbing or cyanosis Psychiatric: Present normal affect and cooperative Meds Home Medications and Allergies Home Medications Medication Instructions Recorded Confirmed Type ascorbic acid (vitamin C) 1,000 mg 1,000 mg PO DAILY 04/10/23 04/11/23 History tablet (Vitamin C) [id number] 1 tab PO DAILY 04/10/23 04/10/23 History tablet (Multivitamin 50 Plus tablet) zinc 100 mg tablet 100 mg PO DAILY 04/10/23 04/10/23 History magnesium 250 mg tablet 250 mg PO DAILY 04/11/23 04/11/23 History New Prescriptions to Start Prescriptions: Allergies Allergy/AdvReac Type Severity Reaction Status Date / Time No Known Allergies Allergy Verified 04/10/23 09:58 Results Laboratory Findings 04/11/23 07:12 04/11/23 07:12 Abnormal lab findings: Abnormal Labs 04/10/23 04/10/23 04/10/23 10:50 14:30 17:09 WBC 13.1 H RBC 4.42 L Hgb 13.5 L Hct 41.9 L MCV 94.8 H MCHC Plt Count 627 H Neut % (Auto) 86.6 H Lymph % (Auto) 7.9 L Neut # (Auto) 11.3 H Neutrophils % (Manual) 78 H Lymphocytes % (Manual) 3 L Monocytes % (Manual) 14 H Sodium 135 L Carbon Dioxide BUN Glucose 101 H Calcium Magnesium AST 68 H Alkaline Phosphatase 401 H Troponin I 0.04 H 0.04 H 0.04 H NT-Pro-B Natriuret Pep 5980 H Albumin 3.3 L Globulin 3.5 H Albumin/Globulin Ratio 0.9 L 04/11/23 07:12 WBC 16.2 H RBC 3.93 L Hgb 11.8 L D Hct 37.4 L MCV 95.3 H MCHC 31.4 L Plt Count 627 H Neut % (Auto) 92.6 H Lymph % (Auto) 4.5 L Neut # (Auto) 15.0 H Neutrophils % (Manual) 91 H Lymphocytes % (Manual) 6 L Monocytes % (Manual) 1 L Sodium 131 L Carbon Dioxide 20 L BUN 30 H D Glucose 166 H D Calcium 8.2 L Magnesium 2.7 H AST 67 H Alkaline Phosphatase 304 H Troponin I NT-Pro-B Natriuret Pep Albumin 3.0 L Globulin 3.3 H Albumin/Globulin Ratio 0.9 L Assessment and Plan *Assessment and plan (1) Pulmonary emphysema: Status: Acute Category: Medical Code(s): J43.9 - Emphysema, unspecified (2) Lung mass: Status: Acute Category: Medical Code(s): R91.8 - Other nonspecific abnormal finding of lung field (3) Hilar lymphadenopathy: Status: Acute Category: Medical Code(s): R59.0 - Localized enlarged lymph nodes (4) Mediastinal lymphadenopathy: Status: Acute Category: Medical Code(s): R59.0 - Localized enlarged lymph nodes (5) Hemoptysis: Status: Acute Category: Medical Code(s): R04.2 - Hemoptysis Plan Mr. Guthrie is a 73-year-old male presented to the chest discomfort and respiratory distress pulmonary was called for further evaluation and management. Patient also reported to have CT abdomen and [facility] [place]? Concerning for liver lesions and abdominal lymphadenopathy concerning for possible metastatic disease. CTA upon admission no evidence of pulmonary embolism. Bilateral diffuse centrilobular emphysematous changes. Right lower lobe mass, right hilar mass a along with right hilar and mediastinal lymphadenopathy noted. On examination patient does not appear to be in any severe respiratory distress . No significant wheezing noted on auscultation, he admits chronic cough productive phlegm not worsening. Also admits to mild hemoptysis. Plan: Initiate Trelegy 100 inhaleralong with DuoNebs every 6 hours on as-needed basis Monitor clinically for the quantification of hemoptysis, appears to be mild with no need for acute intervention at this point of time Continue ceftriaxone azithromycin pending sputum cultures # Lung mass: # Hilar lymphadenopathy: # Mediastinal lymphadenopathy: Greater than 30 PPD. High risk for lung cancer. CT showed lung mass and lymphadenopathy along with multiple liver lesions and lymphadenopathy. Highly concerning for lung cancer with metastatic spread. Plan: Will follow the patient in pulmonary clinic 2 weeks postdischarge and then we will schedule bronchoscopy TB BX and EBUS FNA as an outpatient basis.
[2023-04-11] MEDS: NOREPINEPHRINE BITARTRATE 8 MG in DEXTROSE 5 % IN WATER 250 ML 30.9600000000000009 MG IV (10:51)
[2023-04-11] MEDS: FLUTICASONE/UMECLIDIN/VILANTER 100/62.5/25MCG INHALER 1 PUFF IH (11:15)
--- NOTE | 2023-04-11 11:15 | PC.NURSE ---
RESPIRATORY CARE NOTE: SPUTUM SPECIMEN SENT TO LAB
[2023-04-11] MEDS: dilTIAZem 30MG TABLET 30 MG PO ×2 (12:30→18:59)
--- NOTE | 2023-04-11 13:43 | P.PN_ITS ---
Subjective Subjective Date: 04/11/23 Time: 11:00 Principal diagnosis: HFpEF, atrial fibrillation with RVR Interval history: This is a 73-year-old white gentleman who presented to cardiology clinic yesterday with complaints of shortness of breath. The patient was found to be in atrial fibrillation with RVR and appeared to be fluid overloaded. He was then sent to the emergency department. The patient reports that he was in the emergency department at [facility] for complaints similar to the complaints he had here and palpitations. He was told he was in atrial fibrillation with RVR. They were unable to convert him to sinus rhythm or get his rate to slow down. He reports that all the hospitals in a 200 mile radius were full so he went home. He states that he has been short of breath for approximately the last month. It has continued to worsen over the last several weeks. He states that he has associated bilateral lower extremity edema. He denies cough. It is associated with orthopnea. He denies any chest pain or pressure. He denies any fever, chills, nausea, vomiting, diarrhea. While in the emergency department the patient was in atrial fibrillation with RVR. The patient was given IV diltiazem and started on a drip. The patient reports that he converted around 3 AM this morning. He is currently in sinus rhythm. He states that he feels so much better and his shortness of breath has significantly improved and his edema has improved as well. Exam Data for Last 24 hours Vital signs and Labs for Last 24 Hours: Temp Pulse Resp BP Pulse Ox O2 Del Method O2 Flow Rate 97.6 F 76 20 127/47 L 93 L Room Air 2 04/11/23 11:07 04/11/23 12:00 04/11/23 12:04/11/23 12:04/11/23 12:04/11/23 12:04/11/23 08:10 Laboratory Results - last 24 hr 04/10/23 10:50: Total Counted 100, Neutrophils % (Manual) 78 H, Band Neutrophils % 5.0, Lymphocytes % (Manual) 3 L, Monocytes % (Manual) 14 H, Platelet Estimate Marked increase, RBC Morphology Normal 04/10/23 14:30: Troponin I 0.04 H 04/10/23 17:09: Troponin I 0.04 H, Procalcitonin 0.130 04/11/23 07:12: WBC 16.2 H, RBC 3.93 L, Hgb 11.8 L D, Hct 37.4 L, MCV 95.3 H, MCH 29.9, MCHC 31.4 L, RDW 14.2, Plt Count 627 H, MPV 8.2, Neut % (Auto) 92.6 H, Lymph % (Auto) 4.5 L, [place] % (Auto) 2.6, Eos % (Auto) 0.1, Baso % (Auto) 0.2, Neut # (Auto) 15.0 H, Lymph # (Auto) 0.7, [place] # (Auto) 0.4, Eos # (Auto) 0.0, Baso # (Auto) 0.0, Total Counted 100, Neutrophils % (Manual) 91 H, Band Neutrophils % 2.0, Lymphocytes % (Manual) 6 L, Monocytes % (Manual) 1 L, Platelet Estimate Marked increase, RBC Morphology Normal, Sodium 131 L, Potassium 4.3, Chloride 102, Carbon Dioxide 20 L, Anion Gap 13.3, BUN 30 H D, Creatinine 1.10 D, Estimated Creat Clear 42, Estimated GFR 65, Est GFR ( Amer) 79 D, Glucose 166 H D, Calcium 8.2 L, Magnesium 2.7 H, Total Bilirubin 0.3, AST 67 H, ALT 45, Alkaline Phosphatase 304 H, Total Protein 6.3, Albumin 3.0 L, Globulin 3.3 H, Albumin/Globulin Ratio 0.9 L I & O for Last 24 hours: Intake & Output 04/08/23 04/09/23 04/10/23 04/11/23 23:59 23:59 23:59 23:59 Intake Total 125.167 / 590.167 891.896 / 891.896 Output Total 200 / 400 1000 / 1000 Balance -74.833 / 190.167 -108.104 / -108.104 Weight 112 lb 114 lb Constitutional Constitutional: no acute distress and average body habitus *Routine HEENT Exam Head: Present normocephalic and atraumatic ENT: Present mucous membranes moist *Routine Neck Exam Neck: Present supple, full ROM and normal carotid upstroke; Absent JVD, carotid bruit or lymphadenopathy *Routine Respiratory Exam Respiratory: Present CTA bilaterally, normal respiratory effort, able to speak in complete sentences and symmetric chest movement *Routine Cardiovascular Exam Cardiovascular: Present RRR, Normal S1 and Normal S2; Absent murmur or gallop *Routine Abdominal Exam Abdominal: Present soft and normoactive bowel sounds; Absent tenderness, distended or organomegaly *Routine Extremities Exam Extremities: Present full ROM, pulses intact and normal capillary refill; Absent cyanosis, clubbing or edema *Routine Skin Exam Skin: Present intact and warm; Absent erythema *Routine Neurological Exam Neurological: Present alert, oriented X3 and CN II-XII intact; Absent sensory deficit or motor deficit Routine Psychiatric Exam Psychiatric: Present normal affect Progress Note: A&P Assessment and plan (1) (HFpEF) heart failure with preserved ejection fraction: Status: Acute (2) Atrial fibrillation: Status: Acute (3) Pulmonary emphysema: Status: Acute (4) Lung mass: Status: Acute (5) Hilar lymphadenopathy: Status: Acute (6) Mediastinal lymphadenopathy: Status: Acute (7) Hemoptysis: Status: Acute (8) Tobacco user: Status: Acute Assessment and Plan Assessment and Plan for All Diagnoses:: Plan: 1. The patient was admitted to the hospital with atrial fibrillation with RVR and acute exacerbation of HFpEF. The patient will continue to get diuresis with Lasix 40 mg IV twice daily. 2. The patient was in atrial fibrillation with RVR. He has converted to sinus rhythm. Will keep him on diltiazem 30 mg every 6 hours for maintenance of sinus rhythm. 3. The patient is on anticoagulation with therapeutic Lovenox. He will be switched over to long-term oral Xarelto or Eliquis prior to discharge home. 4. The patient's echocardiogram shows a normal ejection fraction with moderate RV dilatation and moderate RV dysfunction. 5. The patient did have a CTA of the chest which showed no pulmonary embolism. There was soft tissue opacities in the right middle lobe and superior segment of the right lower lobe which may be inflammatory or a mass. There are multiple hepatic masses as well which is worrisome for widespread metastasis. The patient states that he has been told he has lesions in his lung and liver. This will need further workup and, pulmonology has been consulted. 6. His blood pressure is well-controlled on a Levophed drip at this time. Will try to get the patient weaned off of this today. 7. His LDL goal is less than 100. Will get a lipid panel in the morning. 8. The patient did have a slight elevation in his troponin. This is most likely a type II NE from his atrial fibrillation and HFpEF. No plans for invasive left cardiac catheterization at this time. 9. Further recommendations will be made pending the patient's response to treatment. Thank you for the opportunity to help participate in the care of this patient. All recommendations and orders are per Dr. Mars.
--- NOTE | 2023-04-11 18:08 | PC.NURSE ---
per Dr Christopher if pt is able to stay off of the levophed drip for 3-4 hrs, pt may be transferred out of ICU status to Stepdown.
--- NOTE | 2023-04-11 18:47 | PC.NURSE ---
pt has remained awake this shift, is a/o x 4. lungs are clear but diminished throughout the r posterior. bowel sounds are active in all quads. 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 pt is tolerating weaning of levophed well. pt has tolerated short acting dilitazem well.
[2023-04-11] MEDS: MELATONIN 5MG TABLET 10 MG PO (20:41)
[2023-04-11] MEDS: CEFTRIAXONE SODIUM 1 GM in 0.9 % SODIUM CHLORIDE 50 ML IV (20:42)
[2023-04-11] MEDS: AZITHROMYCIN 500 MG in 0.9 % SODIUM CHLORIDE 250 ML 250 MG IV (20:42)
--- NOTE | 2023-04-11 22:32 | EXP.ACUTE.PN ---
Subjective *Date: 04/11/23 *Time: 22:32 Interval history: Patient feeling better this morning. Heart rate converted to sinus rhythm. Blood pressure doing better on Levophed. Weaning this morning on rounds. Tolerating 2 L nasal cannula oxygen. Denies any chest pain, nausea, vomiting. Medical Exam Vital signs and Labs for Last 24 Hours: Vital Signs Temp Pulse Pulse Resp BP BP Pulse Ox 04/11/23 19:00 71 15 105/61 L 94 L 04/11/23 20:00 68 18 73/35 L 92 L 04/11/23 21:15 90/42 L 04/11/23 21:00 70 15 91/50 L 94 L 04/11/23 21:30 69 93/54 L 93 L 04/11/23 22:00 66 16 83/47 L 92 L 04/11/23 20:00 04/11/23 21:00 87 20 91/50 L 91 L 04/11/23 20:30 96/58 L 04/11/23 20:00 97.8 F 67 20 73/35 L 92 L 04/11/23 19:00 67 18 105/61 L 95 04/11/23 18:46 04/11/23 18:30 67 18 100/50 L 92 L 04/11/23 18:00 71 18 107/55 L 97 04/11/23 17:30 83 18 135/76 92 L 04/11/23 17:00 04/11/23 16:00 78 94 L 04/11/23 17:00 67 20 107/54 L 96 04/11/23 16:00 74 18 110/58 L 97 04/11/23 17:10 92 L 04/11/23 16:00 70 04/11/23 15:00 04/11/23 15:00 68 18 97/54 L 95 04/11/23 12:00 70 04/11/23 13:30 63 18 97/53 L 97 04/11/23 13:10 67 97 04/11/23 14:22 04/11/23 14:00 70 18 122/44 L 96 04/11/23 13:00 67 18 102/56 L 97 04/11/23 12:30 79 20 108/55 L 92 L 04/11/23 15:20 97.8 F 04/11/23 07:30 64 20 106/53 L 92 L 04/11/23 08:00 57 L 20 100/53 L 94 L 04/11/23 08:30 53 L 18 97/55 L 94 L 04/11/23 09:00 62 18 120/57 L 92 L 04/11/23 09:30 60 18 100/56 L 96 04/11/23 10:00 72 20 124/59 L 94 L 04/11/23 10:30 69 18 132/60 95 04/11/23 11:00 80 18 117/75 95 04/11/23 11:30 64 18 107/57 L 97 04/11/23 12:00 76 20 127/47 L 93 L 04/11/23 11:55 04/11/23 11:34 83 04/11/23 11:34 83 04/11/23 11:15 95 04/11/23 11:07 97.6 F 04/11/23 08:00 60 04/11/23 08:50 53 L 93 L 04/11/23 09:00 04/11/23 08:10 93 L 04/11/23 08:00 97.9 F 04/11/23 06:10 58 L 04/11/23 06:10 98 H 04/11/23 06:10 98 04/11/23 07:00 57 L 20 93/53 L 94 L 04/11/23 06:45 64 20 100/58 L 96 04/11/23 06:44 04/11/23 06:15 63 20 92/54 L 100 04/11/23 06:00 53 L 15 89/58 L 97 04/11/23 05:45 58 L 16 99/51 L 99 04/11/23 05:30 54 L 16 99/54 L 99 04/11/23 05:00 04/11/23 05:00 52 L 17 90/54 L 100 04/11/23 04:00 54 L 04/11/23 04:45 58 L 89/51 L 04/11/23 04:30 61 106/51 L 04/11/23 04:20 59 L 90/45 L 04/11/23 04:18 49 L 96/51 L 04/11/23 04:15 49 L 83/46 L 04/11/23 04:00 50 L 04/11/23 04:02 50 L 104/44 L 04/11/23 04:00 55 L 20 88/48 L 99 04/11/23 03:58 52 L 82/48 L 04/11/23 03:56 54 L 70/40 L 04/11/23 03:54 52 L 69/40 L 04/11/23 03:26 58 L 91/50 L 04/11/23 03:24 53 L 78/48 L 04/11/23 03:22 51 L 87/47 L 04/11/23 03:30 98.1 F 52 L 20 86/60 L 98 04/11/23 03:20 58 L 78/45 L 04/11/23 03:00 53 L 20 75/48 L 100 04/11/23 02:52 04/11/23 02:48 55 L 14 78/48 L 100 04/11/23 00:00 80 04/11/23 02:00 55 L 21 74/46 L 100 04/11/23 01:00 98.1 F 62 20 81/49 L 100 04/11/23 00:50 56 L 82/43 L 04/11/23 00:40 54 L 83/59 L 04/11/23 00:30 04/11/23 00:00 75 20 83/59 L 98 04/11/23 00:00 80 04/10/23 23:00 O2 Del Method O2 Flow Rate 04/11/23 19:00 Room Air 04/11/23 20:00 Room Air 04/11/23 21:15 04/11/23 21:00 Room Air 04/11/23 21:30 04/11/23 22:00 04/11/23 20:00 Room Air 04/11/23 21:00 Room Air 04/11/23 20:30 04/11/23 20:00 Room Air 04/11/23 19:00 Room Air 04/11/23 18:46 Room Air 04/11/23 18:30 Room Air 04/11/23 18:00 Room Air 04/11/23 17:30 Room Air 04/11/23 17:00 Room Air 04/11/23 16:00 Room Air 04/11/23 17:00 Room Air 04/11/23 16:00 Room Air 04/11/23 17:10 Room Air 04/11/23 16:00 04/11/23 15:00 Room Air 04/11/23 15:00 Room Air 04/11/23 12:00 04/11/23 13:30 Room Air 04/11/23 13:10 Room Air 04/11/23 14:22 Room Air 04/11/23 14:00 Room Air 04/11/23 13:00 Room Air 04/11/23 12:30 Room Air 04/11/23 15:20 04/11/23 07:30 Room Air 04/11/23 08:00 Room Air 04/11/23 08:30 Room Air 04/11/23 09:00 Room Air 04/11/23 09:30 Room Air 04/11/23 10:00 Room Air 04/11/23 10:30 Room Air 04/11/23 11:00 Room Air 04/11/23 11:30 Room Air 04/11/23 12:00 Room Air 04/11/23 11:55 Room Air 04/11/23 11:34 04/11/23 11:34 04/11/23 11:15 Room Air 04/11/23 11:07 04/11/23 08:00 04/11/23 08:50 Room Air 04/11/23 09:00 Room Air 04/11/23 08:10 Nasal Cannula 2 04/11/23 08:00 04/11/23 06:10 04/11/23 06:10 04/11/23 06:10 Nasal Cannula 1 04/11/23 07:00 Nasal Cannula 2 04/11/23 06:45 Nasal Cannula 2 04/11/23 06:44 Nasal Cannula 2 04/11/23 06:15 Nasal Cannula 2 04/11/23 06:00 Nasal Cannula 2 04/11/23 05:45 Nasal Cannula 2 04/11/23 05:30 Nasal Cannula 04/11/23 05:00 Nasal Cannula 2 04/11/23 05:00 Nasal Cannula 2 04/11/23 04:00 04/11/23 04:45 04/11/23 04:30 04/11/23 04:20 04/11/23 04:18 04/11/23 04:15 04/11/23 04:00 04/11/23 04:02 04/11/23 04:00 Nasal Cannula 04/11/23 03:58 04/11/23 03:56 04/11/23 03:54 04/11/23 03:26 04/11/23 03:24 04/11/23 03:22 04/11/23 03:30 Nasal Cannula 2 04/11/23 03:20 04/11/23 03:00 Nasal Cannula 2 04/11/23 02:52 Nasal Cannula 2 04/11/23 02:48 Nasal Cannula 2 04/11/23 00:00 04/11/23 02:00 Nasal Cannula 2 04/11/23 01:00 Nasal Cannula 2 04/11/23 00:50 04/11/23 00:40 04/11/23 00:30 Nasal Cannula 2 04/11/23 00:00 Nasal Cannula 2 04/11/23 00:00 04/10/23 23:00 Nasal Cannula 2 Intake and Output 04/11/23 04/11/23 04/11/23 07:59 15:59 23:59 Intake Total 619.259 / 1248.254 321.399 / 1248.254 307.596 / 1248.254 Output Total 300 / 1900 950 / 1900 650 / 1900 Balance 319.259 / -651.746 -628.601 / -651.746 -342.404 / -651.746 Intake: Intake, Oral Amount 0 / 480 240 / 480 240 / 480 Intake, Total IV Amount 548.259 / 697.254 81.399 / 697.254 67.596 / 697.254 Azithromycin 500 mg In 0.9 % 250 / 250 Sodium Chloride 250 ml @ 250 mls/hr IV Q24H [facility] Rx#:[id number] Ceftriaxone Sodium 1 gm In 0.9 50 / 50 % Sodium Chloride 50 ml @ 100 mls/hr IV Q24H [facility] Rx#:[id number] Magnesium Sulfate in Water 2 gm 50 / 50 In 50 ml @ 50 mls/hr IV ONCE ONE Rx#:[id number] dilTIAZem HCL 100 mg In 0.9 % 115 / 115 Sodium Chloride 100 ml @ 10 MG/ HR 10 mls/hr IV .Q10H [facility] Rx#: [id number] Infusion Intake / Norepinephrine Bitartrate 8 mg / 71 In Dextrose 5 % in Water 250 ml @ 2 MCG/MIN 3.87 mls/hr IV . Q24H [facility] Rx#:[id number] Output: Output, Urine Amount 300 / 1900 950 / 1900 650 / 1900 Other: Number of Unmeasured Voids 1 Weight 51.71 kg Patient Weight 04/11/23 23:59 Weight 51.71 kg Laboratory Results - last 24 hr 04/11/23 07:12: WBC 16.2 H, RBC 3.93 L, Hgb 11.8 L D, Hct 37.4 L, MCV 95.3 H, MCH 29.9, MCHC 31.4 L, RDW 14.2, Plt Count 627 H, MPV 8.2, Neut % (Auto) 92.6 H, Lymph % (Auto) 4.5 L, [place] % (Auto) 2.6, Eos % (Auto) 0.1, Baso % (Auto) 0.2, Neut # (Auto) 15.0 H, Lymph # (Auto) 0.7, [place] # (Auto) 0.4, Eos # (Auto) 0.0, Baso # (Auto) 0.0, Total Counted 100, Neutrophils % (Manual) 91 H, Band Neutrophils % 2.0, Lymphocytes % (Manual) 6 L, Monocytes % (Manual) 1 L, Platelet Estimate Marked increase, RBC Morphology Normal, Sodium 131 L, Potassium 4.3, Chloride 102, Carbon Dioxide 20 L, Anion Gap 13.3, BUN 30 H D, Creatinine 1.10 D, Estimated Creat Clear 42, Estimated GFR 65, Est GFR ( Amer) 79 D, Glucose 166 H D, Calcium 8.2 L, Magnesium 2.7 H, Total Bilirubin 0.3, AST 67 H, ALT 45, Alkaline Phosphatase 304 H, Total Protein 6.3, Albumin 3.0 L, Globulin 3.3 H, Albumin/Globulin Ratio 0.9 L I & O for Labs for Last 24 Hours: Intake & Output 04/08/23 04/09/23 04/10/23 04/11/23 23:59 23:59 23:59 23:59 Intake Total 125.167 / 954.847 4008.254 / 1248.254 Output Total 200 / 400 1900 / 1900 Balance -74.833 / 190.167 -651.746 / -651.746 Weight 50.802 kg 51.71 kg Constitutional: Present no acute distress, thin and chronically ill appearing Head: Present atraumatic and normocephalic ENT: Present normal exam Neck: Present normal inspection Respiratory: Present diminished air movement (right lower lung arce); Absent rhonchi, wheezes or crackles Cardiac: Present Reg Rate and Rhythm GI: Present soft and normal bowel sounds; Absent distention or tenderness Extremities: Present normal inspection and full ROM Skin: Present intact; Absent erythema Neuro: Present Grossly Intact, alert, awake, oriented x 3 and moves all extremities Assessment and Plan *Assessment and plan (1) (HFpEF) heart failure with preserved ejection fraction: Status: Acute Category: Medical Code(s): I50.30 - Unspecified diastolic (congestive) heart failure (2) Obstructive pneumonia: Status: Acute Category: Medical Code(s): J18.9 - Pneumonia, unspecified organism (3) Lung mass: Status: Acute Category: Medical Code(s): R91.8 - Other nonspecific abnormal finding of lung field (4) Atrial fibrillation: Status: Acute Category: Medical Code(s): I48.91 - Unspecified atrial fibrillation (5) Mediastinal lymphadenopathy: Status: Acute Category: Medical Code(s): R59.0 - Localized enlarged lymph nodes (6) Pulmonary emphysema: Status: Acute Category: Medical Code(s): J43.9 - Emphysema, unspecified Plan This is a 73-year-old male with shortness of breath he was admitted for further evaluation of questionable lung mass, atrial flutter and CHF. Heart rate sinus today. Cardiology and pulmonology consulted. Appreciate their recommendations. Continues to require inpatient management. Problems addressed as follows: Atrial flutter with RVR CHF exacerbation A-fib is converted to sinus rhythm. Cardiology consulted, recommend transitioning to diltiazem 30 mg every 6 hours for maintenance of sinus rhythm. Currently anticoagulated with therapeutic Lovenox. Transition over to DOAC prior to discharge home. Echo with normal ejection fraction and moderate RV dilation. Continue to try to wean off Levophed, goal MAP greater than 60. Continue telemetry -Continue Lasix 40 mg BID Potassium 4.3, magnesium 2.7, creatinine 1.0. Repeat CBC, CMP, magnesium ordered for the morning. Monitoring electrolytes while diuresing. Lung mass with postobstructive pneumonia Opacities of the right middle lobe and superior segment of the right lower lobe that may represent inflammatory versus mass Pulmonology consulted, appreciate their recommendations. Recommend transitioning to Augmentin for discharge home. Continue azithromycin and Rocephin during admission. Sputum culture pending Continue DuoNebs every 6 as needed Liver lesions Recent finding in March by PCP Will need follow up for likely metastatic disease. Now with lung nodules as well and abdominla lymphadenopathy LFTs stable Abdomen benign DVt PPx Therapuetic Lovenos Full code
[2023-04-12] VITALS (50 sets, daily range): BP systolic 80–134; BP diastolic 41–76; PULSE 57–149; RESP 13–34; TEMP 36.5–36.8; O2SAT 89–95; BMI 19.9
[2023-04-12] MEDS: FLUTICASONE/UMECLIDIN/VILANTER 100/62.5/25MCG INHALER 1 PUFF IH (06:24)
[2023-04-12] MEDS: dilTIAZem 30MG TABLET 30 MG PO ×2 (06:49→10:46)
--- NOTE | 2023-04-12 06:54 | PC.NURSE ---
THIS RN NOTIFIED [employer] APPLICATOR OF THIS PT'S HR 140'S SUSTAINING POST INHALER USAGE; 0330 CARDIZEM PO THAT WAS HELD WAS GIVEN. SHEET ROCK APPLICATOR SAID TO MONITOR PT FOR S/S OF DISTRESS AT THIS TIME
[2023-04-12 07:15] LABS: Basophils % 0.1 % (0.1-2.0); Hematocrit 34.9 % (42.0-52.0); Hemoglobin 11.3 g/dL (14.1-18.0); Lymphocytes # 0.9 K/mm3 (0.7-4.5); Lymphocytes % 4.1 % (10-50); Mean Corpuscular HGB Conc 32.3 g/dL (31.8-35.4); Mean Corpuscular Hemoglobin 30.7 pg (27.0-31.2); Mean Corpuscular Volume 95.1 fl (80-94); Mean Platelet Volume 7.7 fl (7.4-10.4); Monocytes % 4.4 % (1.7-9.3); Neutrophils # 20.2 K/mm3 (1.8-7.8); Neutrophils % 91.4 % (37.0-80.0); Platelet Count 566 K/mm3 (142-424); Red Blood Count 3.67 M/mm3 (4.60-6.20); Red Cell Distribution Width 14.2 % (11.5-17.5)
[2023-04-12 07:19] LABS: Alanine Aminotransferase 66 U/L (12-78); Albumin Level 2.9 g/dl (3.5-5.0); Alkaline Phosphatase 292 U/L (38-126); Anion Gap 7.6 mEq/L (5-15); Aspartate Amino Transferase 109 U/L (17-59); Bilirubin,Direct 0.1 mg/dl (0.0-0.4); Bilirubin,Indirect 0.2 mg/dL (0.0-0.9); Bilirubin,Total 0.3 mg/dl (0.2-1.3); Bilirubin,Unconjugated 0.2 mg/dL (0.0-1.1); Blood Urea Nitrogen 27 mg/dl (9-20); Calcium 7.7 mg/dl (8.4-10.2); Carbon Dioxide 27 mmol/L (22.0-30.0); Chloride 102 mmol/L (98-107); Cholesterol 144 mg/dl (140-200); Creatinine Clearance Estimated 48 mL/min (50-200); Estimated Glomerular Filt Rate 94 ml/min (>60); GFR (African American) 114 ML/MIN (>60); Glucose 97 mg/dl (74-100); HDL Cholesterol 36 mg/dl (40-60); Potassium 3.6 mmoL/L (3.5-5.1); Sodium 133 mmol/L (136-145); Total Protein,Serum 6.1 g/dl (6.3-8.2); Triglycerides 81 mg/dl (30-150); VLDL Cholesterol 16 mg/dL (0-40)
--- NOTE | 2023-04-12 07:21 | PC.NURSE ---
UPON TAKING REPORT NOTED PT'S HR 140'S SUSTAINED, PER BROOD HATCHERY MANAGER RN PT'S HR WENT UP AT APPROXIMATELY 0645 THIS AM (HAD BEEN 50-70'S THROUGHOUT NIGHT), BROOD HATCHERY MANAGER RN GAVE DOSE OF DILTIAZEM 30PO AT 0649, NOTIFIED MD GOMEZ OF PT'S HR 140'S, STATED TO LET MEDICINE JUST GIVEN WORK AND WATCH HR AND WEAN LEVO AT THIS TIME, DECREASING LEVOPHED TO 3MCG/MIN ([id number]/MIN)
[2023-04-12 07:22] LABS: MANUAL DIFFERENTIAL MANUAL DIFFERENTIAL (MANUAL DIFF)
[2023-04-12 07:30] LABS: Direct LDL Cholesterol 84.11 mg/dL (100-129)
[2023-04-12] MEDS: METOPROLOL TARTRATE 5MG/5ML VIAL 5 MG IV ×2 (08:31→16:23)
[2023-04-12 08:32] LABS: Lymphocytes % 3 % (10-50); Monocytes % 4 % (2-9); Neutrophils % 90 % (42-76); Total Cells Counted 100
[2023-04-12 08:34] LABS: Platelet Estimate Moderate Increase; RBC Morphology Normal
[2023-04-12] MEDS: guaiFENesin 600 MG TAB.ER.12H PO ×2 (09:17→20:37)
[2023-04-12] MEDS: ENOXAPARIN 60MG/0.6ML SYRINGE 55 MG SQ (09:17)
--- NOTE | 2023-04-12 09:45 | PC.NURSE ---
Addendum entered by Stella Boo RN 04/12/23 09:46: was also going to ask MD if wanted to give or hold am lasix due to bp and levo drip, but unable to reach MD Original Note: attempted to notify MD that pt's HR still in 140's after metoprolol IV given one hour ago, but MD stated to call back and hung up before this RN could say anything
--- NOTE | 2023-04-12 09:53 | PC.NURSE ---
informed MD Christopher that pt's HR still 140's, stated talking to Yamilet with cardiology and is putting in amiodarone orders with pharmacy
[2023-04-12] MEDS: AMIODARONE HCL 150 MG in DEXTROSE 5 % IN WATER 100 ML 618 MG IV (10:02)
[2023-04-12] MEDS: NOREPINEPHRINE BITARTRATE 8 MG in DEXTROSE 5 % IN WATER 250 ML 5.80999999999999961 MG IV (10:04)
[2023-04-12] MEDS: FUROSEMIDE 40MG/4ML VIAL 40 MG IV (10:06)
--- NOTE | 2023-04-12 10:09 | P.PN_ITS ---
Subjective *Date: 04/12/23 *Time: 12:03 Interval history: No acute respiratory events overnight. denies nay new complaints. Pulmonology Exam Inpatient Vital signs and Labs for Last 24 Hours: Temp Pulse Resp BP Pulse Ox O2 Del Method O2 Flow Rate 97.7 F 146 H 25 H 96/60 L 91 L Room Air 2 04/12/23 08:00 04/12/23 09:15 04/12/23 09:00 04/12/23 09:15 04/12/23 09:00 04/12/23 09:00 04/11/23 21:30 Laboratory Results - last 24 hr 04/12/23 06:25: WBC 22.0 H* D, RBC 3.67 L, Hgb 11.3 L, Hct 34.9 L, MCV 95.1 H, MCH 30.7, MCHC 32.3, RDW 14.2, Plt Count 566 H, MPV 7.7, Neut % (Auto) 91.4 H, Lymph % (Auto) 4.1 L, [place] % (Auto) 4.4, Eos % (Auto) 0.0 L, Baso % (Auto) 0.1, Neut # (Auto) 20.2 H, Lymph # (Auto) 0.9, [place] # (Auto) 1.0, Eos # (Auto) 0.0, Baso # (Auto) 0.0, Total Counted 100, Neutrophils % (Manual) 90 H, Band Neutrophils % 3.0, Lymphocytes % (Manual) 3 L, Monocytes % (Manual) 4, Platelet Estimate Moderate increase, RBC Morphology Normal, Sodium 133 L, Potassium 3.6, Chloride 102, Carbon Dioxide 27, Anion Gap 7.6, BUN 27 H, Creatinine 0.80 D, Estimated Creat Clear 48, Estimated GFR 94, Est GFR ( Amer) 114 D, Glucose 97 D, Calcium 7.7 L, Total Bilirubin 0.3, Direct Bilirubin 0.1, Conjugated Bilirubin 0.0, Indirect Bilirubin 0.2, Unconjugated Bilirubin 0.2, AST 109 H D, ALT 66 D, Alkaline Phosphatase 292 H, Total Protein 6.1 L, Albumin 2.9 L, Triglycerides 81, Cholesterol 144, LDL Cholesterol Direct 84.11 L, VLDL Cholesterol 16, HDL Cholesterol 36 L, Cholesterol/HDL Ratio 4.0 H I & O for Labs for Last 24 Hours: Intake & Output 04/09/23 04/10/23 04/11/23 04/12/23 23:59 23:59 23:59 23:59 Intake Total 125.167 / 775.327 1947.573 / 1416.573 728.686 / 728.686 Output Total 200 / 400 1900 / 1900 500 / 500 Balance -74.833 / 190.167 -637.427 / -483.427 228.686 / 228.686 Weight 112 lb 114 lb 116 lb 9.6 oz Constitutional: Present moderate distress Head: Present normocephalic and atraumatic ENT: Present normal exam, normal oropharynx and mucous membranes moist Neck: Present normal inspection and full ROM Respiratory: Present rhonchi, normal respiratory effort and able to speak in complete sentences; Absent respiratory distress or wheezes Cardiac: Present S1/S2, Tachycardia and radial pulses present GI: Present soft and distention; Absent tenderness or guarding Skin: Present intact; Absent cyanosis or jaundice Neuro: Present alert, awake and oriented x 3 Extremities: Present normal inspection; Absent clubbing or cyanosis Psychiatric: Present normal affect and cooperative Assessment and Plan *Assessment and plan (1) Pulmonary emphysema: Status: Acute Category: Medical Code(s): J43.9 - Emphysema, unspecified (2) Lung mass: Status: Acute Category: Medical Code(s): R91.8 - Other nonspecific abnormal finding of lung field (3) Hilar lymphadenopathy: Status: Acute Category: Medical Code(s): R59.0 - Localized enlarged lymph nodes (4) Mediastinal lymphadenopathy: Status: Acute Category: Medical Code(s): R59.0 - Localized enlarged lymph nodes (5) Hemoptysis: Status: Acute Category: Medical Code(s): R04.2 - Hemoptysis (6) Pneumonia: Status: Acute Category: Medical Code(s): J18.9 - Pneumonia, unspecified organism Plan Mr. Guthrie is a 73-year-old male presented to the chest discomfort and respiratory distress pulmonary was called for further evaluation and management. Patient also reported to have CT abdomen and [facility]? Concerning for liver lesions and abdominal lymphadenopathy concerning for possible metastatic disease. CTA upon admission no evidence of pulmonary embolism. Bilateral diffuse centrilobular emphysematous changes. Right lower lobe mass, right hilar mass a along with right hilar and mediastinal lymphadenopathy noted. On initial examination patient does not appear to be in any severe respiratory distress . No significant wheezing noted on auscultation, he admits chronic cough productive phlegm not worsening. Also admits to mild hemoptysis. Interval update: No acute respiratory events overnight. Oxygen saturations worse from yesterday, saturating 89 to 90% on room air. Worsening leukocytosis Chest x-ray concerning worsening right lower lobe pulmonary infiltrate. Plan: Oxygen supplementation as needed to maintain O2 saturation goal of 90% and above DuoNebs every 6 hours scheduled. Patient refused to use trilogy. No evidence of hemoptysis since yesterday. Change antibiotics to levofloxacin x 8 days for possible Pseudomonas coverage pending sputum cultures and nasal MRSA PCR pending clinical improvement. # Lung mass: # Hilar lymphadenopathy: # Mediastinal lymphadenopathy: Greater than 30 PPD. High risk for lung cancer. CT showed lung mass and lymphadenopathy along with multiple liver lesions and lymphadenopathy. Highly concerning for lung cancer with metastatic spread. Plan: Will follow the patient in pulmonary clinic 2 weeks postdischarge and then we will schedule bronchoscopy TB BX and EBUS FNA as an outpatient basis. Thank you for involving pulmonary in this patient care. Pulmonary services will be unavailable to provide for both inpatient and outpatient patient care services starting 04/13/2022 untill 04/21/2022. We will resume direct inpatient and pulmonary services starting 04/22/2022, 8AM.
--- NOTE | 2023-04-12 10:09 | XR_ITS ---
FINAL REPORT CLINICAL HISTORY: SOB, COUGH COMPARISON: 04/10/2023 FINDINGS: A single portable view of the chest was obtained. The heart size and pulmonary vascularity are within normal limits. The mediastinum is within normal limits. Persistent masslike opacity in the right lower thorax likely represents mass or pneumonia. Worsening right base opacities are also consistent with worsening atelectasis or pneumonia. The bony thorax is intact. IMPRESSION: Persistent masslike opacity right lower thorax, likely mass or pneumonia. Worsening right base atelectasis or pneumonia. Reviewed, Interpreted and Dictated by Arsenio Ramirez III, MD Transcribed by Ines Whitley Authenticated and [facility]
[2023-04-12] MEDS: AMIODARONE HCL 900 MG in DEXTROSE 5 % IN WATER 500 ML 34.5300000000000011 MG IV (10:15)
[2023-04-12] MEDS: IPRATROPIUM/ALBUTEROL 3 ML NEB IH ×2 (11:29→18:20)
--- NOTE | 2023-04-12 11:35 | P.PN_ITS ---
Subjective *Date: 04/12/23 *Time: 16:08 Interval history: [facility]. Slowly coming off Levophed. Still on 5 units this morning to maintain adequate blood pressure with MAP greater than 65. Stable on room air. No fever overnight. No nausea or vomit ing. Alert and oriented x 3. Medical Exam Vital signs and Labs for Last 24 Hours: Vital Signs Temp Pulse Pulse Resp BP Pulse Ox O2 Del Method 04/12/23 11:29 133 H 04/12/23 11:29 142 H 04/12/23 10:45 144 H 104/68 L 04/12/23 10:30 142 H 110/62 04/12/23 10:15 141 H 99/62 L 04/12/23 10:53 Room Air 04/12/23 10:00 146 H 32 H 92/67 L 89 L Room Air 04/12/23 09:45 146 H 94/60 L 04/12/23 09:30 146 H 101/69 L 04/12/23 09:15 146 H 96/60 L 04/12/23 08:00 145 H 04/12/23 08:00 91 L Room Air 04/12/23 09:00 144 H 25 H 85/62 L 91 L Room Air 04/12/23 08:00 97.7 F 04/12/23 08:45 141 H 98/70 L 04/12/23 08:30 149 H 91/65 L 04/12/23 08:15 148 H 97/70 L 04/12/23 07:45 148 H 92/46 L 04/12/23 07:30 146 H 102/55 L 04/12/23 07:15 142 H 122/76 04/12/23 08:54 Room Air 04/12/23 08:00 147 H 18 111/55 L 91 L Room Air 04/12/23 06:30 96/52 L 04/12/23 06:15 95/57 L 04/12/23 06:25 95 Room Air 04/12/23 04:00 70 04/12/23 05:30 91/53 L 04/12/23 05:15 89/52 L 04/12/23 04:15 109/54 L 04/12/23 04:00 71 15 102/41 L 91 L Room Air 04/12/23 04:00 Room Air 04/11/23 20:00 70 04/12/23 00:00 80 04/12/23 03:15 96/48 L 04/12/23 07:00 142 H 24 95/67 L 90 L Room Air 04/12/23 07:00 Room Air 04/12/23 06:00 81 22 109/55 L 93 L Room Air 04/12/23 05:00 60 19 80/49 L 90 L Room Air 04/12/23 05:00 Room Air 04/12/23 04:00 Room Air 04/12/23 03:00 57 L 13 98/48 L 92 L Room Air 04/12/23 03:00 Room Air 04/12/23 02:45 107/55 L 04/12/23 02:30 95/56 L 04/12/23 02:15 93/57 L 04/12/23 02:00 70 19 91/55 L 93 L Room Air 04/12/23 01:15 91/53 L 04/12/23 00:45 88/41 L 04/12/23 00:30 84/46 L 04/12/23 00:15 87/47 L 04/12/23 01:00 61 14 112/61 93 L Room Air 04/12/23 01:00 Room Air 04/12/23 00:00 Room Air 04/12/23 00:00 97.7 F 72 15 103/58 L 95 Room Air 04/12/23 00:00 Room Air 04/11/23 23:00 Room Air 04/11/23 21:00 Room Air 04/11/23 23:15 95/52 L 04/11/23 23:00 69 13 98/51 L 92 L Room Air 04/11/23 22:45 91/55 L 04/11/23 19:30 78/44 L 04/11/23 19:00 71 15 105/61 L 94 L Room Air 04/11/23 20:00 68 18 73/35 L 92 L Room Air 04/11/23 21:15 90/42 L 04/11/23 21:00 70 15 91/50 L 94 L Room Air 04/11/23 21:30 69 93/54 L 93 L 04/11/23 22:00 66 16 83/47 L 92 L 04/11/23 20:00 Room Air 04/11/23 21:00 87 20 91/50 L 91 L Room Air 04/11/23 20:30 96/58 L 04/11/23 20:00 97.8 F 67 20 73/35 L 92 L Room Air 04/11/23 19:00 67 18 105/61 L 95 Room Air 04/11/23 18:46 Room Air 04/11/23 18:30 67 18 100/50 L 92 L Room Air 04/11/23 18:00 71 18 107/55 L 97 Room Air 04/11/23 17:30 83 18 135/76 92 L Room Air 04/11/23 17:00 Room Air 04/11/23 16:00 78 94 L Room Air 04/11/23 17:00 67 20 107/54 L 96 Room Air 04/11/23 16:00 74 18 110/58 L 97 Room Air 04/11/23 17:10 92 L Room Air 04/11/23 16:00 70 04/11/23 15:00 Room Air 04/11/23 15:00 68 18 97/54 L 95 Room Air 04/11/23 12:00 70 04/11/23 13:30 63 18 97/53 L 97 Room Air 04/11/23 13:10 67 97 Room Air 04/11/23 14:22 Room Air 04/11/23 14:00 70 18 122/44 L 96 Room Air 04/11/23 13:00 67 18 102/56 L 97 Room Air 04/11/23 12:30 79 20 108/55 L 92 L Room Air 04/11/23 15:20 97.8 F 04/11/23 12:00 76 20 127/47 L 93 L Room Air 04/11/23 11:55 Room Air Intake and Output 04/11/23 04/12/23 04/12/23 23:59 07:59 15:59 Intake Total 321.915 / 1416.573 248.686 / 728.686 480 / 728.686 Output Total 650 / 1900 375 / 700 325 / 700 Balance -328.085 / -483.427 -126.314 / 28.686 155 / 28.686 Intake: Intake, Oral Amount 240 / 480 480 / 480 Intake, Total IV Amount 81.915 / 865.573 248.686 / 248.686 Norepinephrine Bitartrate 8 mg 154 / 154 In Dextrose 5 % in Water 250 ml @ 2 MCG/MIN 3.87 mls/hr IV . Q24H [facility] Rx#:[id number] Output: Output, Urine Amount 650 / 1900 375 / 700 325 / 700 Other: Number of Unmeasured Voids 1 Number of Bowel Movements 1 Weight 52.889 kg Patient Weight 04/12/23 23:59 Weight 52.889 kg Laboratory Results - last 24 hr 04/12/23 06:25: WBC 22.0 H* D, RBC 3.67 L, Hgb 11.3 L, Hct 34.9 L, MCV 95.1 H, MCH 30.7, MCHC 32.3, RDW 14.2, Plt Count 566 H, MPV 7.7, Neut % (Auto) 91.4 H, Lymph % (Auto) 4.1 L, [place] % (Auto) 4.4, Eos % (Auto) 0.0 L, Baso % (Auto) 0.1, Neut # (Auto) 20.2 H, Lymph # (Auto) 0.9, [place] # (Auto) 1.0, Eos # (Auto) 0.0, Baso # (Auto) 0.0, Total Counted 100, Neutrophils % (Manual) 90 H, Band Neutrophils % 3.0, Lymphocytes % (Manual) 3 L, Monocytes % (Manual) 4, Platelet Estimate Moderate increase, RBC Morphology Normal, Sodium 133 L, Potassium 3.6, Chloride 102, Carbon Dioxide 27, Anion Gap 7.6, BUN 27 H, Creatinine 0.80 D, Estimated Creat Clear 48, Estimated GFR 94, Est GFR ( Amer) 114 D, Glucose 97 D, Calcium 7.7 L, Total Bilirubin 0.3, Direct Bilirubin 0.1, Conjugated Bilirubin 0.0, Indirect Bilirubin 0.2, Unconjugated Bilirubin 0.2, AST 109 H D, ALT 66 D, Alkaline Phosphatase 292 H, Total Protein 6.1 L, Albumin 2.9 L, Triglycerides 81, Cholesterol 144, LDL Cholesterol Direct 84.11 L, VLDL Cholesterol 16, HDL Cholesterol 36 L, Cholesterol/HDL Ratio 4.0 H I & O for Labs for Last 24 Hours: Intake & Output 04/09/23 04/10/23 04/11/23 04/12/23 23:59 23:59 23:59 23:59 Intake Total 125.167 / 222.192 2851.573 / 1416.573 728.686 / 728.686 Output Total 200 / 400 1900 / 1900 700 / 700 Balance -74.833 / 190.167 -637.427 / -483.427 28.686 / 28.686 Weight 50.802 kg 51.71 kg 52.889 kg Constitutional: Present no acute distress, thin and chronically ill appearing Head: Present atraumatic and normocephalic ENT: Present normal exam Neck: Present normal inspection Respiratory: Present diminished air movement (right lower lung arce); Absent rhonchi, wheezes or crackles Cardiac: Present Regular Rhythm and Tachycardia GI: Present soft and normal bowel sounds; Absent distention or tenderness Extremities: Present normal inspection and full ROM Skin: Present intact; Absent erythema Neuro: Present Grossly Intact, alert, awake, oriented x 3 and moves all extremities Assessment and Plan *Assessment and plan (1) (HFpEF) heart failure with preserved ejection fraction: Status: Acute Category: Medical Code(s): I50.30 - Unspecified diastolic (congestive) heart failure (2) Obstructive pneumonia: Status: Acute Category: Medical Code(s): J18.9 - Pneumonia, unspecified organism (3) Lung mass: Status: Acute Category: Medical Code(s): R91.8 - Other nonspecific abnormal finding of lung field (4) Atrial fibrillation: Status: Acute Category: Medical Code(s): I48.91 - Unspecified atrial fibrillation (5) Mediastinal lymphadenopathy: Status: Acute Category: Medical Code(s): R59.0 - Localized enlarged lymph nodes (6) Pulmonary emphysema: Status: Acute Category: Medical Code(s): J43.9 - Emphysema, unspecified Plan This is a 73-year-old male with shortness of breath he was admitted for further evaluation of questionable lung mass, atrial flutter and CHF. Heart rate sinus today. Cardiology and pulmonology consulted. Appreciate their recommendations. Continues to require inpatient management. Problems addressed as follows: Atrial flutter with RVR CHF exacerbation - Following breathing treatments this morning he went into atrial fibrillation/flutter with a rate in the 140s. start amiodarone drip at this time. Plan to transition to p.o. amiodarone if converts back to sinus rhythm. - Will transition to p.o. eliquis for anticoagulation, 5 mg twice daily - Echo shows normal ejection fraction. -Wean off Levophed drip today. Anticipate improvement with stopping diltiazem -Discontinue Lasix - Patient is negative fluid balance since admission. Electrolytes stable with potassium 3.6, creatinine 0.8 BUN 27, repeat CBC, CMP, magnesium ordered for the morning Lung mass with postobstructive pneumonia Opacities of the right middle lobe and superior segment of the right lower lobe that may represent inflammatory versus mass Pulmonology consulted, appreciate their recommendations. Recommend transitioning to Augmentin for discharge home. Continue azithromycin and Rocephin during admission. Sputum culture pending Continue DuoNebs every 6 as needed Liver lesions Recent finding in March by PCP Will need follow up for likely metastatic disease. Now with lung nodules as well and abdominla lymphadenopathy LFTs stable Abdomen benign DVt PPx Therapuetic Lovenos Full code
[2023-04-12] MEDS: LEVOFLOXACIN/D5W 750 MG/150 ML 750 MG/150 ML PIGGYBACK 100 MG IV (13:00)
--- NOTE | 2023-04-12 13:34 | EXP.CARD.PN ---
Subjective Subjective Date: 04/12/23 Time: 12:30 Principal diagnosis: HFpEF, atrial fibrillation with RVR Interval history: This is a 73-year-old white gentleman who presented to cardiology clinic with complaints of shortness of breath. He was found to be in atrial fibrillation with RVR and an acute exacerbation of HFpEF. The patient was sent to the emergency department and subsequently admitted to the hospital. The patient did convert to sinus rhythm with diltiazem. He was in normal sinus rhythm all day yesterday but his diltiazem had to be held due to hypotension and after getting breathing treatments the patient did go back into atrial fibrillation/flutter with RVR. His heart rate this morning is still elevated in the 140s. This morning he denies any chest pain or pressure. He does not really have any shortness of breath he says not like the last time when his heart was racing. He does not feel his heart rate today. He states his lower extremity edema continues to improve. He denies any fever, chills, nausea, vomiting, diarrhea. Exam Data for Last 24 hours Vital signs and Labs for Last 24 Hours: Temp Pulse Resp BP Pulse Ox O2 Del Method O2 Flow Rate 97.9 F 145 H 33 H 134/73 90 L Room Air 2 04/12/23 12:00 04/12/23 12:00 04/12/23 12:00 04/12/23 12:00 04/12/23 12:00 04/12/23 12:00 04/11/23 21:30 Laboratory Results - last 24 hr 04/12/23 06:25: WBC 22.0 H* D, RBC 3.67 L, Hgb 11.3 L, Hct 34.9 L, MCV 95.1 H, MCH 30.7, MCHC 32.3, RDW 14.2, Plt Count 566 H, MPV 7.7, Neut % (Auto) 91.4 H, Lymph % (Auto) 4.1 L, [place] % (Auto) 4.4, Eos % (Auto) 0.0 L, Baso % (Auto) 0.1, Neut # (Auto) 20.2 H, Lymph # (Auto) 0.9, Fisher # (Auto) 1.0, Eos # (Auto) 0.0, Baso # (Auto) 0.0, Total Counted 100, Neutrophils % (Manual) 90 H, Band Neutrophils % 3.0, Lymphocytes % (Manual) 3 L, Monocytes % (Manual) 4, Platelet Estimate Moderate increase, RBC Morphology Normal, Sodium 133 L, Potassium 3.6, Chloride 102, Carbon Dioxide 27, Anion Gap 7.6, BUN 27 H, Creatinine 0.80 D, Estimated Creat Clear 48, Estimated GFR 94, Est GFR ( Amer) 114 D, Glucose 97 D, Calcium 7.7 L, Total Bilirubin 0.3, Direct Bilirubin 0.1, Conjugated Bilirubin 0.0, Indirect Bilirubin 0.2, Unconjugated Bilirubin 0.2, AST 109 H D, ALT 66 D, Alkaline Phosphatase 292 H, Total Protein 6.1 L, Albumin 2.9 L, Triglycerides 81, Cholesterol 144, LDL Cholesterol Direct 84.11 L, VLDL Cholesterol 16, HDL Cholesterol 36 L, Cholesterol/HDL Ratio 4.0 H I & O for Last 24 hours: Intake & Output 04/09/23 04/10/23 04/11/23 04/12/23 23:59 23:59 23:59 23:59 Intake Total 125.167 / 702.086 3059.573 / 1416.573 740.403 / 740.403 Output Total 200 / 400 1900 / 1900 700 / 700 Balance -74.833 / 190.167 -637.427 / -483.427 40.403 / 40.403 Weight 112 lb 114 lb 116 lb 9.6 oz Constitutional Constitutional: no acute distress and average body habitus *Routine HEENT Exam Head: Present normocephalic and atraumatic ENT: Present mucous membranes moist *Routine Neck Exam Neck: Present supple, full ROM and normal carotid upstroke; Absent JVD, carotid bruit or lymphadenopathy *Routine Respiratory Exam Respiratory: Present CTA bilaterally, normal respiratory effort, able to speak in complete sentences and symmetric chest movement *Routine Cardiovascular Exam Cardiovascular: Present Normal S1, Normal S2, tachycardia and irregular rhythm; Absent murmur or gallop *Routine Abdominal Exam Abdominal: Present soft and normoactive bowel sounds; Absent tenderness, distended or organomegaly *Routine Extremities Exam Extremities: Present full ROM, pulses intact and normal capillary refill; Absent cyanosis, clubbing or edema *Routine Skin Exam Skin: Present intact and warm; Absent erythema *Routine Neurological Exam Neurological: Present alert, oriented X3 and CN II-XII intact; Absent sensory deficit or motor deficit Routine Psychiatric Exam Psychiatric: Present normal affect Progress Note: A&P Assessment and plan (1) (HFpEF) heart failure with preserved ejection fraction: Status: Acute (2) Atrial fibrillation: Status: Acute (3) Tachycardia: Status: Acute (4) Atrial flutter: Status: Acute (5) Elevated troponin: Status: Acute (6) Pulmonary emphysema: Status: Acute (7) Lung mass: Status: Acute (8) Hilar lymphadenopathy: Status: Acute (9) Mediastinal lymphadenopathy: Status: Acute (10) Hemoptysis: Status: Acute (11) Pneumonia: Status: Acute (12) Tobacco user: Status: Acute (13) HLD (hyperlipidemia): Status: Acute (14) COPD (chronic obstructive pulmonary disease): Status: Acute Assessment and Plan Assessment and Plan for All Diagnoses:: Plan: 1. The patient was admitted to the hospital with atrial fibrillation with RVR and acute exacerbation of HFpEF. Will continue with 6 at this time for continued diuresis. 2. The patient was in atrial fibrillation with RVR on admission. He did convert back to sinus rhythm with IV diltiazem and oral long-acting diltiazem. However his blood pressure did drop and he had to be put on a Levophed drip. His diltiazem was switched over yesterday to a short acting form but he continued to be hypotensive so his diltiazem was held. Following breathing treatments this morning he did go back into atrial fibrillation/flutter with a rate in the 140s. He remains tachycardic this morning with a heart rate still in the 140s. Will start him on an amiodarone drip at this time. He did convert yesterday so hopefully initiating amiodarone will help him to convert back to sinus rhythm today. Will give him an amiodarone bolus followed by the amiodarone drip. 3. The patient is on therapeutic Lovenox for anticoagulation. Prior to discharge home he will need to be switched over to oral Xarelto or Eliquis. 4. His ejection fraction is normal. 5. He did have a CTA of the chest that showed no pulmonary embolism. There is a right middle lobe and right lower lobe mass. As well as multiple hepatic masses. This is worrisome for widespread metastasis. The patient reports that he has been told he had lesions on his lungs and the liver recently. This will need further workup and pulmonology has been consulted. Will defer. 6. His blood pressure is well-controlled on a Levophed drip. Hopefully this can be weaned off today with stopping the diltiazem. 7. His LDL goal is less than 100. His LDL is 84. 8. The patient did have a slight bump in his troponin which is most likely a type II SD from his atrial fibrillation and acute exacerbation of HFpEF. No plans for invasive left cardiac catheterization at this time. 9. Further recommendations will be made pending the patient's response to treatment. Dr. Haywood will be available by phone over the weekend and if the patient is still hospitalized on Saturday then cardiology will resume following patient at that time. Thank you for the opportunity to help participate in the care of this patient. All recommendations and orders are per Dr. Mars.
[2023-04-12] MEDS: MELATONIN 5MG TABLET 10 MG PO (20:37)
[2023-04-12] MEDS: APIXABAN 5MG TABLET 5 MG PO (20:37)
[2023-04-13] VITALS (7 sets, daily range): BP systolic 83–114; BP diastolic 56–73; PULSE 120–140; RESP 15–30; TEMP 36.5–36.6; O2SAT 90–97; BMI 20.5
[2023-04-13 07:19] LABS: Hematocrit 37.4 % (42.0-52.0); Hemoglobin 12.2 g/dL (14.1-18.0); Lymphocytes # 0.8 K/mm3 (0.7-4.5); Mean Corpuscular HGB Conc 32.5 g/dL (31.8-35.4); Mean Corpuscular Hemoglobin 30.5 pg (27.0-31.2); Mean Corpuscular Volume 93.8 fl (80-94); Mean Platelet Volume 8.5 fl (7.4-10.4); Monocytes % 5.9 % (1.7-9.3); Neutrophils # 14.6 K/mm3 (1.8-7.8); Neutrophils % 89.1 % (37.0-80.0); Platelet Count 514 K/mm3 (142-424); Red Blood Count 3.99 M/mm3 (4.60-6.20); Red Cell Distribution Width 14.2 % (11.5-17.5); White Blood Count 16.4 K/mm3 (4.8-10.8)
[2023-04-13 07:21] LABS: MANUAL DIFFERENTIAL MANUAL DIFFERENTIAL (MANUAL DIFF)
[2023-04-13 07:27] LABS: Alanine Aminotransferase 61 U/L (12-78); Albumin Level 2.8 g/dl (3.5-5.0); Albumin/Globulin Ratio 0.9 (1.1-1.8); Alkaline Phosphatase 289 U/L (38-126); Anion Gap 6.8 mEq/L (5-15); Aspartate Amino Transferase 84 U/L (17-59); Bilirubin,Total 0.4 mg/dl (0.2-1.3); Blood Urea Nitrogen 28 mg/dl (9-20); Calcium 7.9 mg/dl (8.4-10.2); Carbon Dioxide 26 mmol/L (22.0-30.0); Chloride 100 mmol/L (98-107); Creatinine Clearance Estimated 49 mL/min (50-200); Estimated Glomerular Filt Rate 82 ml/min (>60); GFR (African American) 100 ML/MIN (>60); Globulin 3.2 g/dL (1.3-3.2); Glucose 95 mg/dl (74-100); Magnesium 2.5 mg/dl (1.6-2.3); Potassium 3.8 mmoL/L (3.5-5.1); Sodium 129 mmol/L (136-145)
[2023-04-13] MEDS: guaiFENesin 600 MG TAB.ER.12H PO (08:25)
[2023-04-13] MEDS: METOPROLOL TARTRATE 5MG/5ML VIAL 5 MG IV (08:25)
[2023-04-13] MEDS: APIXABAN 5MG TABLET 5 MG PO (08:25)
[2023-04-13 08:33] LABS: Lymphocytes % 10 % (10-50); Monocytes % 4 % (2-9); Neutrophils % 86 % (42-76); Platelet Estimate Slight Increase; RBC Morphology Normal; Total Cells Counted 100
--- NOTE | 2023-04-13 08:50 | ECG_ITS ---
APPROVED REPORT Exam: Resting ECG HR:116 bpm ECG Measurements Heart Rate 116 AXES QRSd 153 QRS 112 QT 364 T 11 QTc 433 Conclusion ATRIAL FLUTTER/TACHYCARDIA WITH RAPID VENTRICULAR RESPONSE RIGHT BUNDLE BRANCH BLOCK [120+ ms QRS DURATION, UPRIGHT V1, 40+ ms S IN I/aVL/V4/V5/V6] LEFT POSTERIOR FASCICULAR BLOCK [QRS AXIS > 109, INFERIOR Q] ABNORMAL ECG UNCONFIRMED REPORT Electronically signed by : Dick Radford MD 04/14/2023 15:13:26
[2023-04-13] MEDS: METOPROLOL TARTRATE 25MG TABLET 25 MG PO (09:38)
[2023-04-13] MEDS: AMIODARONE 200MG TABLET 200 MG PO (09:38)
[2023-04-13] MEDS: IPRATROPIUM BROMIDE 0.5 MG/2.5ML SOLUTION IH (10:13)
[2023-04-13] MEDS: LEVALBUTEROL 1.25MG/3ML NEB 1.25 MG IH (10:13)
--- NOTE | 2023-04-13 10:47 | PC.NURSE ---
STOPPED AMIO DRIP PER PROTOCOL, PO DOSE GIVE ONE HOUR AGO PER [facility]
--- NOTE | 2023-04-13 11:44 | EXP.DC.SUM ---
General Admission date:: 04/10/23 Discharge date: 04/13/23 HPI HPI HPI: This is a very pleasant 73-year-old male with no significant past medical history who presents to the emergency department today with complaints of shortness of breath. He reports cough that started approximately 1 month ago with increased shortness of breath over the last several weeks. He reports being seen at [facility] ER for palpitations and was noted to be in A-fib. They attempted to admit him at that time but there was no bed availability. He reports shortness of breath with activity and at rest. He is reports midsternal chest pressure. States that he has had some increased fatigue. He does endorse a prior history of atrial fibrillation in his 20s and was on digoxin but was never referred to cards. He subsequently stopped the medication shortly after and has had no recurrence of A-fib since. He reports following with his PCP Dr. Chapman recently. He states he was given an albuterol inhaler with some symptomatic relief. He has recently undergone CT imaging for his abdomen that was notable for liver lesions for which they were attempting to set up outpatient follow-up for. Today in the emergency department he was noted to be in A-fib with RVR and requiring oxygen to maintain oxygen saturations. CT imaging here negative for PE but notable for soft tissue opacities in the right middle lobe and the superior segment of the right lower lobe that could represent inflammatory versus mass. Multiple hepatic lesions as well as well as upper abdominal adenopathy suspicious for widespread metastatic disease. Given the above-mentioned complaints, he will be admitted to the hospital service for further evaluation and management. Hospital Course Hospital Course Hospital Course: This is a 73-year-old male with shortness of breath he was admitted for further evaluation of questionable lung mass, atrial flutter and CHF. Heart rate sinus today. Cardiology and pulmonology consulted. Appreciate their recommendations. Patient's heart rate in the 120s on morning of discharge. Extensive discussion with patient, he is very anxious and worried about being at home with his mother who is over 100 years old and he helps care for her. His sister is also sick. With the incoming weather projected, he is very anxious and is adamant about going home. While I advised the patient that it is not in his best interest to discharge at this time, he states he must leave. Came to a shared decision on medications to try and treat his A-flutter and pneumonia, close follow-up scheduled. Counseled that if symptoms worsen he needs to go back to the ER for urgent evaluation. Patient states understanding. Problems addressed as follows: Atrial flutter with RVR CHF exacerbation -Patient has been in and out of a flutter during admission. Heart rate this morning in the 120s. Initially was started on diltiazem which controlled his heart rate but he was hypotensive necessitating Levophed. Able to wean off Levophed and was started on amiodarone. I have added metoprolol 50 mg twice daily to aid in rate control. Was started on Eliquis for anticoagulation. Patient converted back to sinus without any issues, low concern for thrombus. No thrombi noted on echo. Echo shows normal ejection fraction. Will continue amiodarone 200 mg twice daily, metoprolol tartrate 50 mg twice daily, Eliquis 5 mg twice daily. Diuresed well and does not appear volume overloaded at this time. Lung mass with postobstructive pneumonia Opacities of the right middle lobe and superior segment of the right lower lobe that may represent inflammatory versus mass. Pulmonology consulted, appreciate their recommendations. Patient was initiated on azithromycin and Rocephin. Will actually transition to levofloxacin to complete 8-day course of antibiotics. Renally dosing medications 750 mg Levaquin every 48 hours. Sputum cultures pending. Will need follow-up with pulmonology as an outpatient to consider bronchoscopy. Continue once daily Trelegy. DuoNebs have been causing fast heart rate making him anxious so he has been declining them. Labs stable on morning of discharge. White cell count improving at 16. On room air in the low 90s. Liver lesions Recent finding in March by PCP. Will need follow up for likely metastatic disease. Now with lung nodules as well and abdominal lymphadenopathy. LFTs stable. Abdomen benign Spent 30 minutes in discharge counseling, documentation, chart review, and direct care with patient. Exam Data for Last 24 hours Vital signs and Labs for Last 24 Hours: Temp Pulse Resp BP Pulse Ox O2 Del Method O2 Flow Rate 97.8 F 128 H 27 H 109/68 L 96 Room Air 2 04/13/23 08:00 04/13/23 10:14 04/13/23 10:00 04/13/23 10:00 04/13/23 10:14 04/13/23 10:48 04/11/23 21:30 Laboratory Results - last 24 hr 04/13/23 06:08: WBC 16.4 H D, RBC 3.99 L, Hgb 12.2 L, Hct 37.4 L, MCV 93.8, MCH 30.5, MCHC 32.5, RDW 14.2, Plt Count 514 H, MPV 8.5, Neut % (Auto) 89.1 H, Lymph % (Auto) 5.0 L, [place] % (Auto) 5.9, Eos % (Auto) 0.0 L, Baso % (Auto) 0.0 L, Neut # (Auto) 14.6 H, Lymph # (Auto) 0.8, [place] # (Auto) 1.0, Eos # (Auto) 0.0, Baso # (Auto) 0.0, Total Counted 100, Neutrophils % (Manual) 86 H, Lymphocytes % (Manual) 10, Monocytes % (Manual) 4, Platelet Estimate Slight increase, RBC Morphology Normal, Sodium 129 L, Potassium 3.8, Chloride 100, Carbon Dioxide 26, Anion Gap 6.8, BUN 28 H, Creatinine 0.90, Estimated Creat Clear 49, Estimated GFR 82, Est GFR ( Amer) 100, Glucose 95, Calcium 7.9 L, Magnesium 2.5 H, Total Bilirubin 0.4, AST 84 H, ALT 61, Alkaline Phosphatase 289 H, Total Protein 6.0 L, Albumin 2.8 L, Globulin 3.2, Albumin/Globulin Ratio 0.9 L I & O for Last 24 hours: Intake & Output 04/10/23 04/11/23 04/12/23 04/13/23 23:59 23:59 23:59 23:59 Intake Total 125.167 / 624.189 7936.573 / 1013.732 5040.144 / 2929.144 832 / 832 Output Total 200 / 400 1900 / 1900 1755 / 1755 525 / 525 Balance -74.833 / 190.167 -637.427 / -483.427 702.144 / 1174.144 307 / 307 Weight 50.802 kg 51.71 kg 52.88 kg 54.658 kg Microbiology Reports for the Last 24 Hours: Microbiology 04/11/23 11:15 Sputum - Expectorated Sputum Gram Stain - Final Constitutional Constitutional: no acute distress, average body habitus, thin and chronically ill appearing *Routine HEENT Exam Head: Present normocephalic and atraumatic ENT: Present mucous membranes moist *Routine Neck Exam Neck: Present supple, full ROM and normal carotid upstroke; Absent JVD, carotid bruit or lymphadenopathy *Routine Respiratory Exam Respiratory: Present crackles (Right lung field), normal respiratory effort, able to speak in complete sentences and symmetric chest movement; Absent rhonchi or wheezes *Routine Cardiovascular Exam Cardiovascular: Present Normal S1, Normal S2, tachycardia and irregularly irregular; Absent murmur or gallop *Routine Abdominal Exam Abdominal: Present soft and normoactive bowel sounds; Absent tenderness, distended or organomegaly *Routine Extremities Exam Extremities: Present full ROM, pulses intact and normal capillary refill; Absent cyanosis, clubbing or edema *Routine Skin Exam Skin: Present intact and warm; Absent erythema *Routine Neurological Exam Neurological: Present alert, oriented X3 and CN II-XII intact; Absent sensory deficit or motor deficit Routine Psychiatric Exam Psychiatric: Present normal affect and normal thought process Results Data Completed and Pending Labs on day of discharge: Labs from last 24 hours 04/13/23 06:08 WBC 16.4 H D RBC 3.99 L Hgb 12.2 L Hct 37.4 L MCV 93.8 MCH 30.5 MCHC 32.5 RDW 14.2 Plt Count 514 H MPV 8.5 Neut % (Auto) 89.1 H Lymph % (Auto) 5.0 L [place] % (Auto) 5.9 Eos % (Auto) 0.0 L Baso % (Auto) 0.0 L Neut # (Auto) 14.6 H Lymph # (Auto) 0.8 [place] # (Auto) 1.0 Eos # (Auto) 0.0 Baso # (Auto) 0.0 Total Counted 100 Neutrophils % (Manual) 86 H Lymphocytes % (Manual) 10 Monocytes % (Manual) 4 Platelet Estimate Slight increase RBC Morphology Normal Sodium 129 L Potassium 3.8 Chloride 100 Carbon Dioxide 26 Anion Gap 6.8 BUN 28 H Creatinine 0.90 Estimated Creat Clear 49 Estimated GFR 82 Est GFR ( Amer) 100 Glucose 95 Calcium 7.9 L Magnesium 2.5 H Total Bilirubin 0.4 AST 84 H ALT 61 Alkaline Phosphatase 289 H Total Protein 6.0 L Albumin 2.8 L Globulin 3.2 Albumin/Globulin Ratio 0.9 L DS: Diagnosis Discharge Diagnosis (1) (HFpEF) heart failure with preserved ejection fraction: Status: Acute Code(s): I50.30 - Unspecified diastolic (congestive) heart failure (2) Obstructive pneumonia: Status: Acute Code(s): J18.9 - Pneumonia, unspecified organism (3) Lung mass: Status: Acute Code(s): R91.8 - Other nonspecific abnormal finding of lung field (4) Atrial fibrillation: Status: Acute Code(s): I48.91 - Unspecified atrial fibrillation (5) Mediastinal lymphadenopathy: Status: Acute Code(s): R59.0 - Localized enlarged lymph nodes (6) Pulmonary emphysema: Status: Acute Code(s): J43.9 - Emphysema, unspecified Meds Home Medications and Allergies Home Medications Medication Instructions Recorded Confirmed Type ascorbic acid (vitamin C) 1,000 mg 1,000 mg PO DAILY 04/10/23 04/11/23 History tablet (Vitamin C) [id number] 1 tab PO DAILY 04/10/23 04/10/23 History tablet (Multivitamin 50 Plus tablet) zinc 100 mg tablet 100 mg PO DAILY 04/10/23 04/10/23 History magnesium 250 mg tablet 250 mg PO DAILY 04/11/23 04/11/23 History amiodarone 200 mg tablet 200 mg PO BID 30 days #60 tabs 04/13/23 Rx apixaban 5 mg tablet (Eliquis) 5 mg PO BID 30 days #60 tabs 04/13/23 Rx fluticasone fur. 100 mcg-umeclid 1 inh inhalation DAILY 30 days #1 04/13/23 Rx 62.5 mcg-vilant 25 mcg ea inhalat.powder (Trelegy Ellipta) levofloxacin 750 mg tablet 750 mg PO Q48H 6 days #3 tabs 04/13/23 Rx metoprolol tartrate 50 mg tablet 50 mg PO BID #60 tabs 04/13/23 Rx New Prescriptions to Start Prescriptions: amiodarone Nir Christopher apixaban [Eliquis] Nir Christopher [id number] [Trelegy Ellipta] Nir Christopher levofloxacin Nir Christopher metoprolol tartrate Nir Christopher Allergies Allergy/AdvReac Type Severity Reaction Status Date / Time No Known Allergies Allergy Verified 04/10/23 09:58 Discharge Plan Disposition Patient Disposition: Home, Self-Care Condition: Undetermined Discharge Order Discharge Orders: Discharge Order (Routine); Ordered 04/13/23 Ordered By: Nir Christopher Follow up Plan Follow up with: Moe Haywood MD [Staff Physician] - 04/23/23 2:30 pm Federico Mcgarry MD [Physician] - 04/24/23 10:00 am Prescriptions/Medication Reconciliation: New Eliquis 5 mg Tablet 5 mg PO BID 30 Days Qty: 60 0RF Trelegy Ellipta 100-62.5-25 mcg Blister With Device 1 inh inhalation DAILY 30 Days Qty: 1 0RF amiodarone 200 mg Tablet 200 mg PO BID 30 Days Qty: 60 0RF levofloxacin 750 mg tablet 750 mg PO Q48H 6 Days Qty: 3 0RF Rx Instructions: first dose 04/14/23 metoprolol tartrate 50 mg tablet 50 mg PO BID Qty: 60 0RF Continued zinc 100 mg Tablet 100 mg PO DAILY ascorbic acid (vitamin C) [Vitamin C] 1,000 mg Tablet 1,000 mg PO DAILY Multivitamin 50 Plus Tablet 1 tab PO DAILY magnesium 250 mg Tablet 250 mg PO DAILY Problem Reconciliation Problems Reviewed?: Yes Patient Discharge Instructions ACTIVITY: Continue current activity DIET: continue same diet Patient Instructions: DI for Heart Failure, DI for Pneumonia -- Adult Providers Primary Care Provider: Brody Chapman [place] Provider: Nir Christopher Attending Provider: Nir Christopher
--- NOTE | 2023-04-13 11:52 | PC.NURSE ---
PT BEING DISCHARGED AT THIS TIME, WORKING ON ORDERS NOW, REMOVED IV FROM RIGHT FOREARM, REMOVED TELEMETRY FROM PT, PT PUTTING CLOTHES ON AND HAS CALLED [facility] TO COME GET HIM, AWAITING DISCHARGE INSTRUCTIONS TO DISCHARGE PT HOME
--- NOTE | 2023-04-13 13:06 | PC.NURSE ---
REMOVED PT'S IV LEFT FOREARM, PT'S SISTER OUT FRONT TO TAKE PT HOME, PT WHEELED TO FRONT ENTRANCE VIA WHEELCHAIR WITH SRNA SALINA
--- NOTE | 2023-04-15 15:29 | CARE MANAGER ---
Contacted patient related to hospital discharge. He answered the phone very short of breath. He states he walked to the phone and once rested his breathing would get better. He has all medication and is aware of follow up appointments. He denies any questions or concerns. ZEENAT Townsend
== END 2023-04-13 13:06 | disposition home or self-care (01) | DRG 193 ==
LOC: ER 14:52 → 2ND 16:46
PROVIDERS: Nurse Practitioner Acute Care; Nurse Practitioner Family; Admitting Provider Internal Medicine Adolescent Medicine; Emergency Provider Emergency Medicine; PCP Family Medicine; Visit Provider Internal Medicine Adolescent Medicine
DX: J18.8 Other pneumonia, unspecified organism (principal); I50.33 Acute on chronic diastolic (congestive) heart failure; I48.3 Typical atrial flutter; C78.7 Secondary malignant neoplasm of liver and intrahepatic bile duct; R04.2 Hemoptysis; J44.9 Chronic obstructive pulmonary disease, unspecified; E78.5 Hyperlipidemia, unspecified; F17.210 Nicotine dependence, cigarettes, uncomplicated; J43.9 Emphysema, unspecified; R59.1 Generalized enlarged lymph nodes; I48.91 Unspecified atrial fibrillation; R91.8 Other nonspecific abnormal finding of lung field
CPT/HCPCS: 36415; 71045; 71275; 80048; 80053; 80061; 80076; 83735; 83880; 84145; 84484; 85007; 85025; 87070; 87081; 87205; 93005; 93306; 94640; 99291; J0282; J0456; J0696; J1956; J3475; J7060; Q9967